=== PATIENT | female | born 1960 | race Caucasian/White ===

== ENCOUNTER → 2016-08-02 | Outpatient (CLI) | payer BC ==
[~2016-08-02] MED LIST: ESTCR PV; LATA0.009 OPB; MULT-506 PO; MULT1TAB10 PO; VITAMIN D PO
== END | disposition home or self-care (01) ==
LOC: C.PAPS 07:57
PROVIDERS: ATTEND Obstetrics & Gynecology
DX: Z01.419 Encounter for gynecological examination (general) (routine) without abnormal findings (principal)

== ENCOUNTER → 2017-04-06 | Outpatient (CLI) | payer OTHER ==
--- NOTE | 2017-04-09 07:39 | MAMMOGRAPHY REPORT ---
BILATERAL DIGITAL SCREENING MAMMOGRAM TOMOSYNTHESIS WITH CAD: 04/06/2017 CLINICAL HISTORY: Routine screening. Patient has no complaints. TECHNIQUE: Breast tomosynthesis in addition to standard 2D mammography was performed. Current study was also evaluated with a Computer Aided Detection (CAD) system. COMPARISON: Comparison is made to exams dated: 02/21/2016 mammogram, 02/15/2015 mammogram, 4 mammogram, 02/10/2013 mammogram, 02/09/2012 mammogram - [facility], and 02/04/2008. BREAST COMPOSITION: There are scattered areas of fibroglandular density in both breasts. FINDINGS: No suspicious masses, calcifications, or areas of architectural distortion are noted in ei ther breast. There has been no significant interval change compared to prior exams. IMPRESSION: ACR BI-RADS CATEGORY 1: NEGATIVE There is no mammographic evidence of malignancy. A 1 year screening mammogram is recommended. The pa tient will receive written notification of the results. Approximately 10% of breast cancers are not detected with mammography. A negative mammographic report should not delay biopsy if a clinically suggestive mass is present. Roshni Seth M.D. ah/:04/06/2017 16:22:44 [employer] Operator: Chantel SANTACRUZ(Kae)(Bryon), [facility] letter sent: Normal 1/2 BI-RADS Code: ACR BI-RADS Category 1: Negative
== END | disposition home or self-care (01) ==
LOC: C.MAMM 15:56
PROVIDERS: ATTEND Obstetrics & Gynecology
DX: Z12.31 Encounter for screening mammogram for malignant neoplasm of breast (principal)

== ENCOUNTER 2024-03-20 16:39 | Inpatient (IN) ==
--- NOTE | 2024-03-20 17:28 | XRay Report ---
Clinical history: Constipation 2 views of the abdomen were obtained Findings: There is no definite sign of small bowel obstruction. There is a large amount of stool in the ascending colon. There is prominent gaseous dilatation of the transverse and descending colon that may be due to ileus. No renal or ureteral calculi are seen. No foreign body is evident. No osseous abnormality is seen Impression: Constipation and suspected colonic ileus Electronically signed by Richard Montiel 03-20-2024 5:27 PM
[2024-03-20 17:31] LABS: Basophils # (auto) 0.03 K/uL (0.00-0.20); Basophils % (auto) 0.3 %; Eosinophils # (auto) 0.06 K/uL (0.00-0.50); Eosinophils % (auto) 0.5 %; Hematocrit (blood only) 33.9 % (37.0-47.0); Hemoglobin 11.5 g/dl (12.0-16.0); Immature Granulocytes # (auto) 0.05 K/uL (0.01-0.20); Immature Granulocytes % (auto) 0.4 %; Lymphocytes % (auto) 7.6 %; Mean Corpuscular Hemoglobin 28.3 pg (25.0-34.0); Mean Corpuscular Hgb Conc 33.9 g/dL (32.0-36.0); Mean Corpuscular Volume 83.5 fL (80.0-100.0); Mean Platelet Volume 10.5 fL (9.4-12.4); Monocytes # (auto) 0.99 K/uL (0.11-0.59); Monocytes % (auto) 8.4 %; Neutrophils # (auto) 9.74 K/uL (1.40-6.50); Neutrophils % (auto) 82.8 %; Platelet Count 259 K/uL (130-400); RDW Coefficient of Variation 12.9 % (11.5-14.5); RDW Standard Deviation 39.2 fL (36.4-46.3); Red Blood Count 4.06 M/uL (4.20-5.40); White Blood Count 11.77 K/ul (4.8-10.8)
[2024-03-20 17:41] LABS: Albumin Globulin Ratio 1.8 (0.9-2); Albumin Level 4.5 gm/dl (3.4-5.0); BUN Creatinine Ratio 15.5 (10-20); Bilirubin,Total 0.6 mg/dl (0.2-1.0); Calcium 9.8 mg/dl (8.6-10.3); Creatinine Clr Calc Pharmacy 46.3 ml/min; Globulin 2.5 gm/dl (2.5-4.0); Potassium 3.7 mmol/L (3.5-5.1)
[2024-03-20] MEDS: OPTIRAY 320 100ml IV ONE (18:28)
--- NOTE | 2024-03-20 19:01 | Emergency Department Note ---
Impression & Plan Rectal obstruction, Acute hyponatremia ED Provider Note HISTORY OF PRESENT ILLNESS: Patient is a 63-year-old female presenting with abdominal pain. Patient reports that she has colon cancer. Reports that she finished a round of chemotherapy 10 days ago. Reports that she has not had a bowel movement in at least 6 days. She states that she has not been passing any gas. Reports that last night she had some slight mucus discharge from her rectum. She reports nausea and burping but denies any vomiting. Reports that her abdomen feels very distended and very full. She denies any chest pain or shortness of breath. Reports that yesterday she tried MiraLAX. Today she tried Dulcolax and mag citrate without any rectal output. She called her oncologist and was referred to the emergency department for further evaluation. Denies any fevers. ROS: as above PHYSICAL EXAM: Constitutional: Patient appears in no acute distress. HENT: Head: Normocephalic and atraumatic. Eyes: EOMI, PERRL Mouth/Throat: Mucous membranes moist. Neck: Trachea midline. Neck supple. Cardiovascular: RRR, No murmurs, rubs or gallops. Intact distal pulses. Pulmonary/Chest: No respiratory distress. Breath sounds clear and equal bilaterally. No wheezes or rales. Abdominal: Abdomen is distended and firm. No reproducible tenderness Rectal: Chaperoned by nurse Anthony. No significant stool appreciated in the rectal vault. Rectal vault did seem to be empty other than a soft mass in the center upper part of the rectal vault. No gross blood on glove after examination. Musculoskeletal: No edema, tenderness or deformity noted. Skin: Warm and dry. No rash, erythema, pallor or cyanosis Psychiatric: Appropriate mood and affect for situation. Neurological: Alert and keenly responsive. CN II-XII grossly intact, moving all extremities equally and fully. MDM: - Vitals signs showed hypertension - History obtained via patient. History as above. - Chronic conditions affecting care: colon cancer - Differential diagnoses include, but are not limited to: small bowel obstruction; UTI; cholecystitis; ureteral stone; diverticulitis - Order placed for continuous cardiac monitoring. At this time, monitor showed rate of 80 bpm with normal sinus rhythm, per my interpretation. - External medical records reviewed. Hematology/oncology note dated 02/28/2024 was reviewed. Patient follows in their clinic for metastatic colon cancer. She had a colonoscopy on 01/02/2024 which revealed 2 synchronous colon cancers in the cecum and hepatic flexure. - Laboratory workup interpreted by myself showed slight leukocytosis (WBC 11.77); hyponatremia (Na 128); normal creatinine; normal lipase - CT abdomen/pelvis with IV contrast showed increased serosal implants/carcinomatosis involving the cecum. Now noted to have a rectal obstruction with severe colonic distention and moderate small bowel fluid. Distal left ureter is obstructed. - Did discuss case with footwear sales representative on-call, Dr. Angela, at 19:42. He discussed that in the short-term the patient could be acutely decompressed here tomorrow with his team. However, he reports that the patient may need further surgical interventions at a higher level of care. He recommends performing a rectal exam and placing an NG tube. He request that the patient be made n.p.o. at midnight and will be evaluated in the emergency department for surgical intervention. He states that if the patient's rectum is dilated on rectal examination, the patient may have some passage of fluid stool and gas. - Rectal exam was performed by myself, but there was no significant dilatation of the rectum on my exam. - NG tube placed by nursing staff. - Discussion was had with medical manager about patient's case and need for admission - Hospitalist, Dr. Redding, consulted for admission - Patient admitted to [facility] for further evaluation and management. ASSESSMENT AND PLAN: Diagnosis: Rectal obstruction; acute hyponatremia Plan: admit Past Med/Surg History Problem List (Updated 03/20/24 @ 21:25 by Kailey Carmichael MD) Acute hyponatremia (Acute) Rectal obstruction (Acute) Port-A-Cath in place (03/06/24) Insertion of Access Port Left Subclavian with Fluoroscopy (Left) - Keyon Sanders, DO Encounter for pre-operative examination Colon cancer metastasized to intra-abdominal lymph node Medical History (Updated 03/20/24 @ 21:25 by Kailey Carmichael MD) Tremor Chronic, stable per PCP records History of cardiac murmur Per patient, mention of cardiac murmur in past No murmur noted per available 2023 exams/PCP records Colon cancer metastasized to intra-abdominal lymph node History of COVID-19 11/2023- mild symptoms, resolved Surgical History (Updated 03/19/24 @ 10:41 by Keyon Sanders DO) H/O colonoscopy (01/02/24) History of tonsillectomy and adenoidectomy (~1963) History of hand surgery (~2012) History of conization of cervix Family History Mother Dementia Hypertension Essential tremor Father Diabetes Hypertension Denies family history of Ovarian cancer Prostate cancer Myocardial infarction Breast cancer Colorectal cancer Social History Smoking Status: Never smoker Second Hand Exposure: No; Do You Dip or Chew Tobacco: No; Hx Alcohol Use: Yes Alcohol type: wine Alcohol Intake Frequency: 4 or More x per/Week Alcohol Intake Frequency Comment: Approx 6 glasses/week Hx Substance Use: No Preferred Language: Polish Communication Ability: Effective Mail Examiner 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 Beliefs That Will Affect Care: None marital status: Current Living Situation: Spouse current occupational status: retired How many Children do You have: 0 Feels Safe at Home: Yes Diet: regular during the past year weight has: remained stable Assistive Devices: None Allergies Allergies Allergy/AdvReac Type Severity Reaction Status Date / Time levofloxacin Allergy Mild rash Verified 03/19/24 10:18 Penicillins Allergy Mild UNK- was Verified 03/19/24 10:18 as child Home Meds Home Medications Medication Instructions Recorded Confirmed prochlorperazine maleate 10 mg 10 mg PO Q6 PRN Nausea 03/20/24 03/20/24 tablet Previous Rx's Medication Instructions Recorded estradiol 0.01% (0.1 mg/gram) 0.5 appful vaginal 2XWK #42.5 grams 04/04/23 vaginal cream (Estrace) Results & Data (ED) Vital Signs Vital Signs - 24 hr 03/20/24 17:05 03/20/24 18:46 Temperature 36.7 C Temperature Source Temporal Artery Scan Pulse Rate 80 Pulse Rate [Finger] 80 Respiratory Rate 18 20 Respiratory Effort / Characteristics Non-Labored Respiratory Depth Normal Blood Pressure 166/100 H Blood Pressure [Left Arm] 189/106 H Blood Pressure Mean 122 Blood Pressure Mean [Left Arm] 133 Pulse Oximetry 99 99 Oxygen Delivery Method Room Air Room Air Sepsis Recent Fever Within 48 Hours No Sepsis New/Unexplained Change in Mental Status No Sepsis Action Taken by Nursing No Action Required Laboratory Data 03/20/24 17:14 03/20/24 17:14 Lab Results 03/20/24 Range/Units 17:14 WBC 11.77 H (4.8-10.8) K/ul RBC 4.06 L (4.20-5.40) M/uL Hgb 11.5 L (12.0-16.0) g/dl Hct 33.9 L (37.0-47.0) % MCV 83.5 (80.0-100.0) fL MCH 28.3 (25.0-34.0) pg MCHC 33.9 (32.0-36.0) g/dL RDW Std Deviation 39.2 (36.4-46.3) fL RDW Coeff of Madan 12.9 (11.5-14.5) % Plt Count 259 (130-400) K/uL MPV 10.5 (9.4-12.4) fL Immature Gran % (Auto) 0.4 % Neut % (Auto) 82.8 % Lymph % (Auto) 7.6 % [place] % (Auto) 8.4 % Eos % (Auto) 0.5 % Baso % (Auto) 0.3 % Neut # (Auto) 9.74 H (1.40-6.50) K/uL Lymph # (Auto) 0.90 L (1.20-3.40) K/uL [place] # (Auto) 0.99 H (0.11-0.59) K/uL Eos # (Auto) 0.06 (0.00-0.50) K/uL Baso # (Auto) 0.03 (0.00-0.20) K/uL Immature Gran # (Auto) 0.05 (0.01-0.20) K/uL Sodium 128 L (136-145) mmol/L Potassium 3.7 (3.5-5.1) mmol/L Chloride 93 L (98-107) mmol/L Carbon Dioxide 26 (21-32) mmol/L Anion Gap 9 (3-11) BUN 17 (6-23) mg/dl Creatinine 1.10 (0.6-1.2) mg/dl Est Cr Clr Drug Dosing 46.3 ml/min eGFR 55.76 BUN/Creatinine Ratio 15.5 (10-20) Glucose 118 H (70-99(Fasting)) mg/dl Calcium 9.8 (8.6-10.3) mg/dl Total Bilirubin 0.6 (0.2-1.0) mg/dl AST 32 (13-39) U/L ALT 17 (7-52) U/L Alkaline Phosphatase 62 (34-104) U/L Total Protein 7.0 (6.0-8.3) gm/dl Albumin 4.5 (3.4-5.0) gm/dl Globulin 2.5 (2.5-4.0) gm/dl Albumin/Globulin Ratio 1.8 (0.9-2) Lipase 36 (11-82) U/L Administered Medications Discontinued Medications Sodium Chloride (Nss) 1,000 mls @ 999 mls/hr IV .Q1H1M ONE Stop: 03/20/24 21:04 Last Admin: 03/20/24 20:22 Dose: 999 mls/hr Documented By: CDM Ioversol (Optiray 320 100ml) 95 ml IV ONCE ONE Stop: 03/20/24 18:29 Last Admin: 03/20/24 18:28 Dose: 95 ml Documented By: EAJulio C Imaging Data Radiologist's Impression: KUB X-Ray 03/20/24 17:10 Clinical history: Constipation 2 views of the abdomen were obtained Findings: There is no definite sign of small bowel obstruction. There is a large amount of stool in the ascending colon. There is prominent gaseous dilatation of the transverse and descending colon that may be due to ileus. No renal or ureteral calculi are seen. No foreign body is evident. No osseous abnormality is seen Impression: Constipation and suspected colonic ileus Electronically signed by Richard Montiel 03-20-2024 5:27 PM Abdomen/Pelvis CT 03/20/24 17:32 EXAM: CT Abdomen and Pelvis With Intravenous Contrast INDICATION: Abdominal pain and vomiting. History of colon cancer. TECHNIQUE: Axial computed tomography images of the abdomen and pelvis with intravenous contrast. Sagittal and coronal reformatted images were created and reviewed. This CT exam was performed using one or more of the following dose reduction techniques: automated exposure control, adjustment of the mA and/or kV according to patient size, and/or use of iterative reconstruction technique. CONTRAST: 95ml of Optiray 320 was administered intravenously. COMPARISON: 01/10/2024 FINDINGS: Limitations: None. Lung bases: There is minimal atelectasis in the left lung base. Pleural space: No visualized pleural effusion or pneumothorax. Heart: No abnormality noted. Mediastinum: No abnormality noted. ABDOMEN: Liver: No abnormality noted. Gallbladder and bile ducts: No calcified stones or surrounding fluid. Pancreas: Homogeneous enhancement. No mass, inflammation or ductal dilation. Spleen: No significant abnormality noted. Adrenals: No significant abnormality noted. Kidneys and ureters: The left kidney is obstructed with delayed nephrogram. The left ureter is mildly dilated followed to the level of the left common iliac bifurcation where it presumably is obstructed. Stomach and bowel: There is marked colonic distention with the cecum measuring roughly 13.6 cm and contains a moderate amount of formed stool. The stool becomes largely liquid with slightly decreasing colonic dilatation to the distal rectum with the rectal vault collapsed. There is a moderate amount of fluid layering in small bowel loops. No pneumatosis. There is slight increased nodular omental caking in the left upper lobe. Increased irregular mucosal thickening of the cecum. PELVIS: Appendix: No findings to suggest acute appendicitis. Bladder: No filling defects to suggest mass or large stone. No inflammation. Reproductive: Stable irregular exophytic mass from the right uterus measuring 4.5 x 3.7 x 3.7 cm. ABDOMEN and PELVIS: Intraperitoneal space: Small amounts of ascites noted in the abdomen and pelvis. No abscess. No free air. Bones/joints: Mild degenerative changes noted in the spine. No lytic or blastic lesions noted. Incidental sacral cysts present. Soft tissues: No significant abnormality noted. Vasculature: No abdominal aortic aneurysm. Lymph nodes: No pathologically enlarged lymph nodes. Other findings: Stable pelvic cystic mass which is now deviated to the right and midline measuring 13.2 x 7.7 x 7.8 cm. Tiny granuloma noted along the right fissure. IMPRESSION: 1. Increased serosal implants/carcinomatosis typically involving the cecum. There is now rectal obstruction with severe colonic distention and moderate small bowel fluid. 2. The left distal ureter is obstructed somewhere about the common iliac bifurcation with delayed left nephrogram and moderate hydronephrosis. 3. Mild abdominal and pelvic ascites. 4. Stable heterogeneous exophytic mass from the right uterus. ACT 112: Negative or not required by law. Electronically signed by Beena Melo 03-20-2024 6:58 PM Discharge Plan Visit Data Chief Complaint: Constipation Stated Complaint: COLON CX PT, CONSTIPATION, BOWEL OBS ED Provider: Kailey Carmichael Discharge Problem: Rectal obstruction, Acute hyponatremia Forms Stand Alone Forms: [facility] Prescriptions Prescriptions: No Action estradiol [Estrace] 0.01 % (0.1 mg/gram) cream 0.5 appful PV 2XWK Qty: 42.5 11RF prochlorperazine maleate 10 mg tablet 10 mg PO Q6 PRN (Reason: Nausea) Referrals Referrals: Je Diez MD [Primary Care Provider] -
[2024-03-20] MEDS: SODIUM CHLORIDE 0.9% 1,000 ML IV ONE (20:22)
--- NOTE | 2024-03-20 20:42 | History & Physical Report ---
Date of Service March 20, 2024 Assessment & Plan (1) Bowel obstruction: Plan: hx of colon cancer s/p 1st tx of chemotherapy 03/10 no bowel movement since 03/11 KUB shows constipation and colonic ileus AP CT showing total obstruction with severe colonic distention and moderate small bowel fluid, mild abdominal and pelvic ascites GI consulted, Dr. Angela to perform bowel decompression 03/21 - may need transferred to tertiary care center once surgical intervention - preop EKG and type/screen ordered NPO NG tube placed - KUB confirms placement Protonix IV BID hydration with IVF overnight (2) Ureter obstruction: Plan: 2/[address] AP shows left distal ureter obstructed somewhere about the common iliac bifurcation with delayed left nephrogram and moderate hydronephrosis monitor urine output UA ordered urology consulted (3) Colon cancer: Plan: with mets to ovary 1st chemotherapy tx 03/10; follows with Dr. Yi ([facility]) and Dr. Becerril ([facility]) complications above is to have chemotherapy Friday 03/24 Oncology consulted - Dr. Becerril - if unable to see patient, can consult Dr. Yi or [place] (4) Acute hyponatremia: Plan: Patient with NA of 128 cause unknown at this time although possible chemotherapy side effect? Serum osmol, Urine NA, Urine Osmol ordered - confirming hypotonic hyponatremia 1 L NSS in ED and gentle resuscitation overnight given NPO trend BMP (5) Leukocytosis: Plan: WBC 11.77 possibly elevated due to cancer tx does not appear infectious at this time - VSS, a febrile UA ordered trend CBC (6) Anemia: Plan: chronic, colon CA Hgb baseline, 115 trend CBC Plan Patient is a 63-year-old female with a past medical history of colon cancer, underwent first round of chemotherapy Friday 03/10. She is being admitted for a bowel obstruction to undergo surgical decompression with GI 03/21; NG tube placed and n.p.o. patient may need transfer to tertiary care center after surgical evaluation during intervention. She is also found to have left distal ureter obstruction, urology consulted. She follows with Dr. Y[facility] at [facility] and Dr. Becerril with [facility]; oncology consulted. VTE ppx: SCDs - defer chemical ppx given surgical intervention, can add post- operatively Diet: NPO Dispo: med/tele Admission and Anticipated Discharge Date Admission Date: 03/20/24 History of Present Illness Chief Complaint: constipation Primary Care Provider: Je Diez MD Patient is a 63-year-old female with a past medical history of colon cancer, underwent first round of chemotherapy Friday 03/10. She is being admitted for a bowel obstruction to undergo surgical decompression with GI 03/21; NG tube placed and n.p.o. patient may need transfer to tertiary care center after surgical evaluation during intervention. She is also found to have left distal ureter obstruction, urology consulted. She follows with Dr. Yi at the [facility] and Dr. Becerril with [facility]; Dr. Becerril consulted. Patient seen at bedside with her present. She stated her last bowel movement was approximately 8 days ago last Sunday. She had her first round of chemotherapy on Friday 03/10. She stated she has had a decreased appetite since then, however has still been eating. She has tried taking MiraLAX on Sunday, Dulcolax yesterday, and mag citrate this afternoon which she threw up. She also had 1 episode of vomiting last night. She denies nausea currently. She denies dyspnea but endorses heavy breathing, as she chronically has when she is feeling sick. She has abdominal distention, and also states her abdomen is uncomfortable but denies pain. She stated she has had decreased urination today but has not been eating or drinking much, denies difficulty urinating or dysuria. She denies fevers, chills, chest pain. Patient does not use nicotine products or drink alcohol. She has no significant past medical history other than the colon cancer, no HTN, DM, previous VTE. She does not take any regular home medications other than a daily multivitamin. She does not use oxygen at baseline. She wishes to be full code at this time. Handoff from ED provider stated that she spoke with GI, Dr. Angela, who is planning for an acute decompression tomorrow morning, based off evaluation during surgical intervention may need transfer to tertiary care center. Dr. Angela recommended a rectal exam in which ER provider stated no rectal dilation, vault empty, palpable mass. NG tube placed in ED. Allergies Allergy/AdvReac Type Severity Reaction Status Date / Time levofloxacin Allergy Mild rash Verified 03/19/24 10:18 Penicillins Allergy Mild UNK- was Verified 03/19/24 10:18 as child Home Medications Medication Instructions Recorded Confirmed Type estradiol 0.01% (0.1 mg/gram) 0.5 appful vaginal 2XWK #42.5 grams 04/04/23 03/20/24 Rx vaginal cream (Estrace) prochlorperazine maleate 10 mg 10 mg PO Q6 PRN Nausea 03/20/24 03/20/24 History tablet Past Med/Surg History Problem List (Updated 03/21/24 @ 16:21 by Latanya Moore MD) Perforation bowel Colon cancer Anemia Leukocytosis Ureter obstruction Bowel obstruction Acute hyponatremia (Acute) Rectal obstruction (Acute) Port-A-Cath in place (03/06/24) Insertion of Access Port Left Subclavian with Fluoroscopy (Left) - Keyon Sanders DO Encounter for pre-operative examination Colon cancer metastasized to intra-abdominal lymph node Medical History Tremor Chronic, stable per PCP records History of cardiac murmur Per patient, mention of cardiac murmur in past No murmur noted per available 2023 exams/PCP records Colon cancer metastasized to intra-abdominal lymph node History of COVID-19 11/2023- mild symptoms, resolved Surgical History H/O colonoscopy (01/02/24) History of tonsillectomy and adenoidectomy (~1963) History of hand surgery (~2012) History of conization of cervix Family History Mother Dementia Hypertension Essential tremor Father Diabetes Hypertension Denies family history of Ovarian cancer Prostate cancer Myocardial infarction Breast cancer Colorectal cancer Social History Smoking Status: Never smoker Second Hand Exposure: No; Do You Dip or Chew Tobacco: No; Hx Alcohol Use: Yes Alcohol type: wine Alcohol Intake Frequency: 4 or More x per/Week Alcohol Intake Frequency Comment: Approx 6 glasses/week Hx Substance Use: No Preferred Language: Kazakh Communication Ability: Effective 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 Non-toxic appearing. HEENT- EOMI, mucous membranes moist. Hearing grossly intact. Heart-normal S1 and S2. No murmurs, rubs or gallops. Lungs-clear bilaterally, no respiratory distress, no accessory muscle use. Abdomen- Non-tender. Moderate distention, NG tube placed. Extremities- no clubbing, cyanosis, or edema. Rheumatologic-normal range of motion. Psychiatric-normal affect. Results & Data Results & Data Vital Signs (Past 12 Hours) Vital Signs Temp Pulse Pulse Resp BP BP Pulse Ox 03/20/24 18:46 80 20 189/106 H 99 03/20/24 17:05 36.7 C 80 18 166/100 H 99 O2 Del Method 03/20/24 18:46 Room Air 03/20/24 17:05 Room Air Laboratory Results Reviewed CBC, CMP Diagnostic Findings reviewed KUB and AP CT Medications Administered ED: 1L NSS ECG Additional Comments: ordered Code Status & VTE Plan Code Status full VTE Prophylaxis Plan VTE Prophylaxis will be ordered: Yes Supervising Physician Co-Signing Physician Notes Attending addendum: I have physically seen this patient, have supervised the LATASHA's activities, and agree with the H&P unless as otherwise noted. Assessment and Plan: The patient is a 63-year-old female with a past medical history including colon cancer status post right first round of chemotherapy 03/10. She was found to have a bowel obstruction, and scheduled to go undergo surgical decompression on 03/21 with gastroenterology. She is also found to have a distal left ureter obstruction, for which urology will be consulted. She will also be seen by Dr. Becerril from [facility] her oncologist. Bowel obstruction- To undergo decompression by gastroenterology on 03/21, and may need transfer at [facility] afterwards related to potential surgical intervention N.p.o. Protonix 40 mg IV twice daily IV fluids as noted Distal left ureteral obstruction- CT abdomen pelvis shows left distal ureter obstructed somewhere about the common iliac bifurcation with delayed left nephrogram and moderate hydronephrosis Follow urine culture and sensitivity Consult urology Colon cancer- Follows with Dr. Hernandez locally, and Dr. Becerril from [facility] Acute hyponatremia- Sodium 128 on admission Serum osmolality, urine osmolality pending Likely secondary to decreased oral intake Laboratories pending PG Care Time/CCT Total # of Minutes Spent Total Time Spent with Patient: Total time spent is greater than 50% in coordination of care (as documented) at patient's floor/unit and/or counseling patient: Coding Level of Care Code 59007 INT INP/OBS CARE MIN Diagnoses Bowel obstruction K56.609 Ureter obstruction N13.5 Colon cancer C18.9 Acute hyponatremia E87.1 Leukocytosis D72.829 Anemia D64.9
--- NOTE | 2024-03-20 21:25 | XRay Report ---
Exam(s): XR KUB EXAM: XR Abdomen, CLINICAL HISTORY: Reason for exam: NG Confirmation. TECHNIQUE: Frontal view of the abdomen/pelvis. COMPARISON: No relevant prior studies available. FINDINGS: Intraperitoneal space: No free air. Gastrointestinal tract: High-grade small bowel obstruction. Bones/joints: Mild degenerative changes of the hips bilaterally. No acute fracture. Tubes, lines and devices: Esophageal catheter with its tip overlying the gastric fundus. IMPRESSION: High grade small bowel obstruction with appropriate positioning of esophageal catheter Electronically signed by: Chavez Powell MD 03/20/24 21:24 PM
[2024-03-20] MEDS: SODIUM CHLORIDE 0.9% 1,000 ML IV SCH (22:30)
[2024-03-20] MEDS: PANTOprazole 40 MG/10 ML SYR IV ONE (22:52)
[2024-03-20 22:56] LABS: Appearance Urine Clear (Clear); Bacteria Urine Automated None Seen (None Seen); Bilirubin Urine Negative (Negative); Blood Urine Negative (Negative); Cast Urine Automated 0-2 /lpf (0-2); Color Urine Yellow; Epithelial Cell Urine Auto 0-2 /hpf (0-2); Glucose Urine UA Negative (Negative); Ketones Urine 2+ (Negative); Leukocyte Esterase Urine Negative (Negative); Nitrite Urine Negative (Negative); Protein Urine 1+ (Negative); RBC Urine Automated 0-2 /hpf (0-2); Specific Gravity Urine > 1.045 (1.000-1.030); Urobilinogen Urine Negative (Negative); WBC Urine Automated 0-5 /hpf (0-5)
[2024-03-20] MEDS: LIDOCAINE 2% JELLY 5 ML TUBE EXT ONE (22:57)
[2024-03-20] MEDS ORDERED: ONDANSETRON INJ 2 MG/ML 2 ML VIAL IV PRN (23:10)
[2024-03-21] MEDS: ACETAMINOPHEN 1,000 MG/100 ML VIAL IV PRN (03:01)
[2024-03-21 07:42] LABS: Hematocrit (blood only) 35.2 % (37.0-47.0); Hemoglobin 12.3 g/dl (12.0-16.0); Mean Corpuscular Hemoglobin 28.7 pg (25.0-34.0); Mean Corpuscular Hgb Conc 34.9 g/dL (32.0-36.0); Mean Corpuscular Volume 82.1 fL (80.0-100.0); Mean Platelet Volume 10.8 fL (9.4-12.4); Platelet Count 224 K/uL (130-400); RDW Coefficient of Variation 13.2 % (11.5-14.5); RDW Standard Deviation 38.5 fL (36.4-46.3); Red Blood Count 4.29 M/uL (4.20-5.40); White Blood Count 0.95 K/ul (4.8-10.8)
[2024-03-21 07:59] LABS: Calcium 8.8 mg/dl (8.6-10.3); Creatinine Clr Calc Pharmacy 52.5 ml/min; Magnesium 2.7 mg/dl (1.7-2.4); Potassium 3.5 mmol/L (3.5-5.1)
[2024-03-21 08:05] LABS: Acanthocytes 1+; Echinocytes 1+; Polychromasia 1+
[2024-03-21 08:09] LABS: Basophils # (auto) 0.01 K/uL (0.00-0.20); Basophils % (auto) 1.1 %; Immature Granulocytes # (auto) 0.01 K/uL (0.01-0.20); Immature Granulocytes % (auto) 1.1 %; Lymphocytes # (auto) 0.14 K/uL (1.20-3.40); Lymphocytes % (auto) 14.7 %; Monocytes # (auto) 0.15 K/uL (0.11-0.59); Monocytes % (auto) 15.8 %; Neutrophils # (auto) 0.64 K/uL (1.40-6.50); Neutrophils % (auto) 67.3 %
[2024-03-21] MEDS: PANTOprazole 40 MG/10 ML SYR IV SCH (08:44)
--- NOTE | 2024-03-21 08:54 | Gastrointestinal Consultation ---
Date of Consultation March 21, 2024 Assessment & Plan (1) Bowel obstruction: (2) Colon cancer: Plan Discussed case with Dr. Angela, will place patient on schedule for an emergent colonoscopy with decompression this morning. patient agreeable. further recommendations to follow. Supervising Physician Co-Signing Physician Notes See my note from earlier today. Metastatic colon cancer with peritoneal mets with obstruction. Colonic decompression did not result in significant decrease in precolonoscopy abdominal distention. Concern for perforation. X-rays confirmed. Patient for transfer to [place]. Reviewed with patient and at the bedside. History of Present Illness Reason for Consultation: rectal obstruction. Requesting Physician: Kailey Scott MD Attending Physician: Chavez Mcneil DO History of Present Illness Patient is a 63 year old female who presented to the ED on 03/20 with complaints of abdominal pain. Patient reports that she has colon cancer and is following with Dr. Becerril at [facility]. She tells me that she finished a round of chemotherapy 10 days ago and she has not had a bowel movement in at least 6 days. She states that she has not been passing any gas. She has tried miralax, dulcolax and mag citrate without benefit. Only had some slight mucus discharge from her rectum. She reports nausea and burping but denies any vomiting. Reports that her abdomen feels very distended and full. KUB shown constipation and suspected ileus. CT shown rectal obstruction with severe colonic distention. She had NG placed with only minimal benefit in regards to her pain. Allergies Allergy/AdvReac Type Severity Reaction Status Date / Time levofloxacin Allergy Mild rash Verified 03/19/24 10:18 Penicillins Allergy Mild UNK- was Verified 03/19/24 10:18 as child Home Medications Medication Instructions Recorded Confirmed Type estradiol 0.01% (0.1 mg/gram) 0.5 appful vaginal 2XWK #42.5 grams 04/04/23 03/20/24 Rx vaginal cream (Estrace) prochlorperazine maleate 10 mg 10 mg PO Q6 PRN Nausea 03/20/24 03/20/24 History tablet Patient History Medical History Tremor Chronic, stable per PCP records History of cardiac murmur Per patient, mention of cardiac murmur in past No murmur noted per available 2023 exams/PCP records Colon cancer metastasized to intra-abdominal lymph node History of COVID-19 11/2023- mild symptoms, resolved Surgical History H/O colonoscopy (01/02/24) History of tonsillectomy and adenoidectomy (~1963) History of hand surgery (~2012) History of conization of cervix Family History Mother Dementia Hypertension Essential tremor Father Diabetes Hypertension Denies family history of Ovarian cancer Prostate cancer Myocardial infarction Breast cancer Colorectal cancer Social History Smoking Status: Never smoker Second Hand Exposure: No; Do You Dip or Chew Tobacco: No; Tobacco Cessation Education Requested by Patient: No Hx Alcohol Use: Yes Alcohol type: wine Alcohol Intake Frequency: 4 or More x per/Week Alcohol Intake Frequency Comment: Approx 6 glasses/week Hx Substance Use: No Preferred Language: Spanish Communication Ability: Effective 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 Beliefs That Will Affect Care: None marital status: Current Living Situation: Spouse current occupational status: retired How many Children do You have: 0 Other Information That Helps Us Care for You: No Feels Safe at Home: Yes Safety Concerns: Feels Safe At This Time Diet: regular during the past year weight has: remained stable Assistive Devices: None Review of Systems Review of Systems: All systems reviewed & are unremarkable except as noted in HPI & below Physical Exam Constitutional: WD/WN, vitals as above Respiratory: normal respiratory effort, lungs clear to auscultation Cardiovascular: tachycardic Gastrointestinal (Abdomen): distended and tympanic. diffusely tender. hypoactive bowel sounds. Psychiatric: Orientation: alert and oriented x 3 Results & Data Vital Signs (Past 12 Hours) Vital Signs Temp Pulse Pulse Resp BP Pulse Ox O2 Del Method 03/21/24 07:57 98.4 F 98 H 16 160/96 H 94 Room Air 03/21/24 07:43 90 03/21/24 02:51 97.5 F L 93 H 16 153/74 H 93 Room Air 03/20/24 23:36 83 03/20/24 23:24 83 18 98 Room Air 03/20/24 23:23 Room Air 03/20/24 23:23 98.1 F 82 18 164/99 H 97 Room Air 03/20/24 22:00 88 18 96 Coding Level of Care Code 09327 INT INP/OBS CARE MIN Diagnoses Bowel obstruction K56.609 Colon cancer C18.9
[2024-03-21] MEDS ORDERED: MINERAL OIL 30 ML UDC ONE (09:00)
[2024-03-21 09:01] LABS: Hematocrit (blood only) 36.1 % (37.0-47.0); Hemoglobin 12.4 g/dl (12.0-16.0); Mean Corpuscular Hemoglobin 28.4 pg (25.0-34.0); Mean Corpuscular Hgb Conc 34.3 g/dL (32.0-36.0); Mean Corpuscular Volume 82.8 fL (80.0-100.0); Mean Platelet Volume 10.4 fL (9.4-12.4); Nucleated RBC # (auto) 0.02 K/uL (0.00-0.12); Nucleated RBC % (auto) 1.4 %; Platelet Count 231 K/uL (130-400); RDW Coefficient of Variation 13.1 % (11.5-14.5); RDW Standard Deviation 38.9 fL (36.4-46.3); Red Blood Count 4.36 M/uL (4.20-5.40); White Blood Count 1.39 K/ul (4.8-10.8)
--- NOTE | 2024-03-21 09:07 | Hospitalist Progress Note ---
Date of Service March 21, 2024 Assessment & Plan Admission and Anticipated Discharge Date Admission Date: March 20, 2024 Results & Data Results & Data Vital Signs (Past 12 Hours) Vital Signs Temp Pulse Pulse Resp BP Pulse Ox O2 Del Method 03/21/24 07:57 36.9 C 98 H 16 160/96 H 94 Room Air 03/21/24 07:43 90 03/21/24 02:51 36.4 C L 93 H 16 153/74 H 93 Room Air 03/20/24 23:36 83 03/20/24 23:24 83 18 98 Room Air 03/20/24 23:23 Room Air 03/20/24 23:23 36.7 C 82 18 164/99 H 97 Room Air 03/20/24 22:00 88 18 96
--- NOTE | 2024-03-21 09:25 | Communication Note ---
Date of Service: March 21, 2024 Colonic obstruction. Likely related to peritoneal metastases. Patient feels better with NG placement but still have significant lower abdominal discomfort. Bowel sounds decreased. Some guarding without jasbir rebound. Needs colonoscopy for decompression. Risks of the procedure including perforation addressed. Informed consent obtained
--- NOTE | 2024-03-21 09:27 | Anesthesiology Consultation ---
Date of Service March 21, 2024 Assessment & Plan Chart Review Chart Review: Acceptable Risk for Surgery and Patient NOT seen in Pre Admission Testing Consults Requested none ASA ASA4 Proposed Anesthesia Anesthesia Type: MAC History Surgery Operation Date: 03/21/24 17:15 Proposed Procedures p Colonoscopy with Decompression Dr. Julio César Angela MD Height/Weight Height: 5 ft 6 in Weight: 68.7 kg Allergies Allergy/AdvReac Type Severity Reaction Status Date / Time levofloxacin Allergy Mild rash Verified 03/19/24 10:18 Penicillins Allergy Mild UNK- was Verified 03/19/24 10:18 as child Medications Home Medications Medication Instructions Recorded Confirmed Last Taken estradiol 0.01% (0.1 mg/gram) 0.5 appful vaginal 2XWK #42.5 grams 04/04/23 03/20/24 03/03/24 23:00 vaginal cream (Estrace) prochlorperazine maleate 10 mg 10 mg PO Q6 PRN Nausea 03/20/24 03/20/24 Unknown tablet Active Medications Generic Name Dose Route Start Last Admin Trade Name Freq PRN Reason Stop Dose Admin Sodium Chloride 1,000 mls @ 100 mls/hr 03/20/24 21:15 03/21/24 08:44 Nss IV 03/21/24 21:14 100 mls/hr .Q10H LIZZ Administration Pantoprazole Sodium 40 mg in 10 mls @ 5 mls/min 03/21/24 09:00 03/21/24 08:44 Protonix IV 04/20/24 08:59 5 mls/min BID LIZZ Administration Acetaminophen 1,000 mg in 100 mls @ 400 mls/hr 03/20/24 23:10 03/21/24 03:16 Ofirmev IV 03/23/24 23:09 Infused Q8H PRN Infusion Pain Past Medical History Medical History Tremor Chronic, stable per PCP records History of cardiac murmur Per patient, mention of cardiac murmur in past No murmur noted per available 2023 exams/PCP records Colon cancer metastasized to intra-abdominal lymph node History of COVID-19 11/2023- mild symptoms, resolved Exercise / Class Metabolic Activity III < 4 Walking/Shop/Light housework Past Family History Family History Mother Dementia Hypertension Essential tremor Father Diabetes Hypertension Denies family history of Ovarian cancer Prostate cancer Myocardial infarction Breast cancer Colorectal cancer Past Surgical History Surgical History H/O colonoscopy (01/02/24) History of tonsillectomy and adenoidectomy (~1963) History of hand surgery (~2012) History of conization of cervix Past Anesthesia History No Hx of Anesthesia Complications and No Family Hx of Anesthesia Complications History of PONV No Hx of PONV and No Hx of Motion Sickness Social History Smoking Status: Never smoker Do You Dip or Chew Tobacco: No Hx Alcohol Use: Yes Alcohol type: wine alcohol intake frequency: a few times a week Hx Substance Use: No substance use type: does not use Physical Exam Vital Signs Last Vital Signs Temp 36.9 C 03/21/24 07:57 Pulse 98 H 03/21/24 07:57 Resp 16 03/21/24 07:57 BP 160/96 H 03/21/24 07:57 Pulse Ox 94 03/21/24 07:57 O2 Del Method Room Air 03/21/24 07:57 Testing Laboratory Results 03/21/24 08:34 03/21/24 06:22 Urine Color Yellow 03/20/24 22:27 Urine Appearance Clear (Clear) 03/20/24 22:27 Urine pH 6.0 (4.5-7.5) 03/20/24 22:27 Ur Specific [place] > 1.045 (1.000-1.030) H 03/20/24 22:27 Urine Protein 1+ (Negative) H 03/20/24 22:27 Urine Glucose (UA) Negative (Negative) 03/20/24 22:27 Urine Ketones 2+ (Negative) H 03/20/24 22:27 Urine Nitrite Negative (Negative) 03/20/24 22:27 Ur Leukocyte Esterase Negative (Negative) 03/20/24 22:27 Urine WBC (Auto) 0-5 /hpf (0-5) 03/20/24 22:27 Urine RBC (Auto) 0-2 /hpf (0-2) 03/20/24 22:27 U Hyaline Cast (Auto) 0-2 /lpf (0-2) 03/20/24 22:27 U Epithel Cells (Auto) 0-2 /hpf (0-2) 03/20/24 22:27 Urine Bacteria (Auto) None Seen (None Seen) 03/20/24 22:27 Blood Type A Positive 03/21/24 06:22 Antibody Screen NEGATIVE 03/21/24 06:22 03/20/24 23:12 POC Glucose 111 H Electrocardiogram Date: 03/21/24 Findings: + NSR @ (@ 94;LAD)
[2024-03-21] MEDS ORDERED: ePHEDrine sulfate 50 MG/ML AMP IV PRN (09:30)
[2024-03-21] MEDS ORDERED: ATROPINE SULFATE 0.1 MG/ML 10ML SYR IV PRN (09:30)
[2024-03-21 09:43] LABS: Basophils # (auto) 0.03 K/uL (0.00-0.20); Basophils % (auto) 2.2 %; Eosinophils # (auto) 0.01 K/uL (0.00-0.50); Eosinophils % (auto) 0.7 %; Immature Granulocytes # (auto) 0.09 K/uL (0.01-0.20); Immature Granulocytes % (auto) 6.5 %; Lymphocytes # (auto) 0.17 K/uL (1.20-3.40); Lymphocytes % (auto) 12.2 %; Monocytes # (auto) 0.18 K/uL (0.11-0.59); Monocytes % (auto) 12.9 %; Neutrophils # (auto) 0.91 K/uL (1.40-6.50); Neutrophils % (auto) 65.5 %
[2024-03-21 09:44] LABS: Echinocytes 2+
[2024-03-21 09:45] LABS: Toxic Vacuolation 1+
[2024-03-21] MEDS ORDERED: LIDOCAINE 2% 2 ML VIAL/AMP(20MG/ML) INFIL ONE (09:55)
[2024-03-21] MEDS ORDERED: PROPOFOL IV EMULSION 10 MG/ML 20 ML VIAL IV ONE (09:55)
[2024-03-21] MEDS ORDERED: fentaNYL citrate PF 100 MCG/2 ML VIAL ONE (09:59)
[2024-03-21] MEDS ORDERED: ONDANSETRON INJ 2 MG/ML 2 ML VIAL ONE (10:35)
--- NOTE | 2024-03-21 10:36 | Communication Note ---
Date of Service: March 21, 2024 Date of Service: March 21, 2024 Unable to negotiate the stricture just above the rectosigmoid with a regular pediatric colonoscope. EGD used. Were able to advance to the transverse colon. The colon lumen did not appear as dilated as I would expect. There is significant stool throughout. Minimal air inserted. Predominately advance with fluid and lavage. Air evacuated on withdrawal. A Cook broad Abram type rectal tube was inserted over guidewire into the sigmoid colon area above the stricture. Position confirmed endoscopically scope removed and the tube secured to the right buttock. Her abdomen does not feel significantly softer post procedure with continued fullness and firmness in the lower abdomen similar to the preop exam. This is concerning. May represent significant peritoneal metastases though need to exclude a perforation. Leave rectal tube in place. Abdominal series. Continue NG suction for now A&P (1) Rectal obstruction: Maintain NPO. Abdominal series. Rectal tube. Acute
[2024-03-21 10:59] VITALS: RESP 18
--- NOTE | 2024-03-21 11:20 | Anesthesiology Progress Note ---
Date of Service March 21, 2024 Anesthesia Post Procedure Vital Signs Vital Signs: Temp Pulse Pulse Resp BP BP Pulse Ox 03/21/24 11:09 95 H 18 141/82 H 94 03/21/24 10:54 91 H 18 165/96 H 97 03/21/24 10:39 87 12 111/75 98 03/21/24 09:27 36.1 C L 90 20 154/101 H 95 03/21/24 07:57 36.9 C 98 H 16 160/96 H 94 03/21/24 07:43 90 03/21/24 02:51 36.4 C L 93 H 16 153/74 H 93 03/20/24 23:36 83 03/20/24 23:24 83 18 98 03/20/24 23:23 03/20/24 23:23 36.7 C 82 18 164/99 H 97 03/20/24 22:00 88 18 96 03/20/24 18:46 80 20 189/106 H 99 03/20/24 17:05 36.7 C 80 18 166/100 H 99 O2 Del Method O2 Flow Rate 03/21/24 11:09 Room Air 03/21/24 10:54 Oxymask 2 03/21/24 10:39 Oxymask 6 03/21/24 09:27 Room Air 03/21/24 07:57 Room Air 03/21/24 07:43 03/21/24 02:51 Room Air 03/20/24 23:36 03/20/24 23:24 Room Air 03/20/24 23:23 Room Air 03/20/24 23:23 Room Air 03/20/24 22:00 03/20/24 18:46 Room Air 03/20/24 17:05 Room Air Pain Intensity Bilateral Abdomen: Pain Intensity: 1 Transfer of Care Handoff Completed per policy Notes Mental Status: alert / awake / arousable Patient Amnestic to Procedure: Yes Nausea / Vomiting: adequately controlled Pain: adequately controlled Airway Patency, RR, SpO2: stable & adequate BP & HR: stable & adequate Hydration State: stable & adequate Anesthetic Complications: no major complications apparent
--- NOTE | 2024-03-21 11:29 | Surgery Consultation ---
Date of Consultation March 21, 2024 Assessment & Plan (1) Colon cancer: Her CT images and results were personally viewed and interpreted by myself Her colonoscopy results were discussed with the patient alongside GI Her obstruction is likely due to her worsening peritoneal disease based on the location in the rectum She has synchronous colon cancer, on active chemotherapy and is neutropenic I think a transfer to a tertiary care center would be appropriate for the patient due to the complexity of her disease I discussed these recommendations with IM team No plans for any surgical intervention Surgery will sign off at this time, please call with any questions or concerns (2) Bowel obstruction: History of Present Illness Reason for Consultation: Colon Cancer, LBO Attending Physician: Chavez Mcneil DO History of Present Illness This is a 63-year-old female who presented to the emergency room yesterday with constipation and abdominal pain. She has a history of synchronous colon cancer and has been undergoing chemotherapy treatments with her last being on March 10. She just had a decompressive colonoscopy and rectal tube placed above the area of rectal stricture. She is resting comfortably after the procedure. States she is passing minimal flatus. Allergies Allergy/AdvReac Type Severity Reaction Status Date / Time levofloxacin Allergy Mild rash Verified 03/19/24 10:18 Penicillins Allergy Mild UNK- was Verified 03/19/24 10:18 as child Home Medications Medication Instructions Recorded Confirmed Type estradiol 0.01% (0.1 mg/gram) 0.5 appful vaginal 2XWK #42.5 grams 04/04/23 03/20/24 Rx vaginal cream (Estrace) prochlorperazine maleate 10 mg 10 mg PO Q6 PRN Nausea 03/20/24 03/20/24 History tablet Patient History Medical History Tremor Chronic, stable per PCP records History of cardiac murmur Per patient, mention of cardiac murmur in past No murmur noted per available 2023 exams/PCP records Colon cancer metastasized to intra-abdominal lymph node History of COVID-19 11/2023- mild symptoms, resolved Surgical History H/O colonoscopy (01/02/24) History of tonsillectomy and adenoidectomy (~1963) History of hand surgery (~2012) History of conization of cervix Family History Mother Dementia Hypertension Essential tremor Father Diabetes Hypertension Denies family history of Ovarian cancer Prostate cancer Myocardial infarction Breast cancer Colorectal cancer Social History Smoking Status: Never smoker Second Hand Exposure: No; Do You Dip or Chew Tobacco: No; Tobacco Cessation Education Requested by Patient: No Hx Alcohol Use: Yes Alcohol type: wine Alcohol Intake Frequency: 4 or More x per/Week Alcohol Intake Frequency Comment: Approx 6 glasses/week Hx Substance Use: No Preferred Language: Macedonian Communication Ability: Effective 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 Beliefs That Will Affect Care: None marital status: Current Living Situation: Spouse current occupational status: retired How many Children do You have: 0 Other Information That Helps Us Care for You: No Feels Safe at Home: Yes Safety Concerns: Feels Safe At This Time Diet: regular during the past year weight has: remained stable Assistive Devices: None Review of Systems Constitutional: no fever and no chills Eyes: no blind spots and no worsening vision Ear, Nose, Mouth, Throat: no ear pain and no dizziness Respiratory: no cough and no dyspnea Cardiovascular: no chest pain and no dyspnea on exertion Gastrointestinal: + abdominal pain, + nausea, + vomiting a nd + constipation Genitourinary: no dysuria and no urinary urgency Musculoskeletal: no back pain and no neck pain Integumentary: no acne, no erythema and no dry skin Neurologic: no gait abnormality and no headache(s) Psychiatric: no behavioral changes and no depression Hematologic / Lymphatic: no easy bleeding and no easy bruising Physical Exam Constitutional: WD/WN, vitals as above Eyes: PERRL, conjunctivae normal, anicteric sclerae ENMT: NG tube in place Neck: trachea midline, no thyromegaly Respiratory: normal respiratory effort, lungs clear to auscultation Cardiovascular: RRR, no murmur, no edema Gastrointestinal (Abdomen): Inspection/Auscultation: + abdomen distended; + abdomen abnormal to inspection Percussion/Palpation: + abdomen tender (mild generalized) and abdomen soft; no guarding and no hernia Musculoskeletal: no cyanosis or clubbing, extremities motor strength 5/5 Skin: no rashes, warm and dry Neurologic: PERRL, EOMI, accommodation nl, no face palsy, no dysarthria Psychiatric: A+Ox3, euthymic affect Results & Data Vital Signs (Past 12 Hours) Vital Signs Temp Pulse Pulse Resp BP Pulse Ox O2 Del Method 03/21/24 11:09 95 H 18 141/82 H 94 Room Air 03/21/24 10:54 91 H 18 165/96 H 97 Oxymask 03/21/24 10:39 87 12 111/75 98 Oxymask 03/21/24 09:27 36.1 C L 90 20 154/101 H 95 Room Air 03/21/24 07:57 36.9 C 98 H 16 160/96 H 94 Room Air 03/21/24 07:43 90 03/21/24 02:51 36.4 C L 93 H 16 153/74 H 93 Room Air 03/20/24 23:36 83 O2 Flow Rate 03/21/24 11:09 03/21/24 10:54 2 03/21/24 10:39 6 03/21/24 09:27 03/21/24 07:57 03/21/24 07:43 03/21/24 02:51 03/20/24 23:36 PG Care Time/CCT Total # of Minutes Spent Total Time Spent with Patient: Total time spent is greater than 50% in coordination of care (as documented) at patient's floor/unit and/or counseling patient: Coding Level of Care Code 94048 INT INP/OBS CARE 75MIN Diagnoses Colon cancer C18.9 Bowel obstruction K56.609
[2024-03-21] MEDS ORDERED: cefTRIAXone SODIUM 2,000 MG/50 ML BAG IV STA (12:31)
--- NOTE | 2024-03-21 12:51 | XRay Report ---
XR abdomen 2V w PA chest HISTORY: 63 years-old Female Colonic obstr post decompression. R/O free air COMPARISON: KUB and CT abdomen and pelvis studies 03/20/2024 TECHNIQUE: PA view of the chest with erect and supine views of the abdomen FINDINGS: Left subclavian Ioxopu-t-Suop catheter is unchanged. Cardiac silhouette is normal in size. No pneumot horax or large pleural effusion. Mild subsegmental bibasilar densities favor atelectasis. Distal tip of enteric tube is noted within the left midabdomen. Large amount of pneumoperitoneum focu s in the abdominal right upper quadrant is new from prior. Moderate gaseous distention of the splenic flexure with colonic air-fluid levels. A rectal catheter is present. Decompressed bladder contains c ontrast. No urolith identified. IMPRESSION: 1. Interval development of a large amount of pneumoperitoneum compatible with perforated viscus. 2. Distal tip of enteric tube projects over the stomach. 3. Rectal catheter in place. 4. Mild left basilar predominant opacities favor atelectasis. ACT 112: Negative or not required by law. The above report was generated using voice recognition software. It may contain grammatical, syntax o r spelling errors. Electronically signed by: He Dick M.D. 03/21/2024 12:29 PM
[2024-03-21] MEDS ORDERED: metroNIDAZOLE 500 MG/100 ML BAG IV SCH (13:00)
--- NOTE | 2024-03-21 13:04 | Urology Consultation ---
<Statement entered by Mode Granados MD - 03/21/24 15:51> Hydronephrosis is likely due to mass effect from GI compression. Due to concern for bowel perforation, she is being transferred to tertiary center for surgical intervention. Additional urologic plan will eventually depend on outcomes of surgery and clinical course. Date of Consultation March 21, 2024 Assessment & Plan (1) Ureter obstruction: Plan 63yo female with a hx of colon cancer admitted with bowel obstruction. Urology consulted due to CT findings of left distal ureteral obstruction somewhere about the common iliac bifurcation with delayed left nephrogram and moderate hydronep hrosis. Pt is afebrile, hypertensive, mildly tachycardic at present Labs reviewed- WBC 11.77- 0.95- 1.39; Creatinine is normal UA without signs of infection or blood She is voiding spontaneously We reviewed her CT findings showing a distal left ureteral obstruction and moderate hydronephrosis. We discussed potential etiologies of the obstruction as well as possible left ureteral stent placement. Ureteral stents were discussed as well as postoperative issues and pain management. Risks/benefits discussed. She is agreeable to proceeding. Update- Pt underwent emergent colonoscopy with decompression this morning showing colonic obstruction likely related to peritoneal metastasis per notes. Surgery recommending transfer to tertiary care center. Given her acute GI concerns, no plan for intervention at this time. Her creatinine is stable. Hydronephrosis likely secondary to mass effect. Further plans will depend on her clinical course. Urology will follow along. Please call with any questions/concerns. History of Present Illness Attending Physician: Chavez Mcneil DO History of Present Illness 63 year old female with a past medical history of colon cancer who presented to the emergency room yesterday with constipation and abdominal pain and admitted for bowel obstruction. Urology was consulted for distal left ureteral obstruction found on CT imaging at time of admission. On admission, she was afebrile. Labs showing a white count of 11.77 and normal renal function. Urinalysis without signs of infection or blood Patient was admitted to medicine service. GI and Surgery consulted. CT abdomen pelvis- 1. Increased serosal implants/carcinomatosis typically involving the cecum. There is now rectal obstruction with severe colonic distention and moderate small bowel fluid. 2. The left distal ureter is obstructed somewhere about the common iliac bifurcation with delayed left nephrogram and moderate hydronephrosis. 3. Mild abdominal and pelvic ascites. 4. Stable heterogeneous exophytic mass from the right uterus. Patient seen at bedside today. She is awake and resting in bed on arrival. No acute distress. Has been NPO. Reports generalized lower abdominal pain. Denies left flank pain. Reports she is voiding without issue. Denies hematuria or dysuria. Denies prior history. Allergies Allergy/AdvReac Type Severity Reaction Status Date / Time levofloxacin Allergy Mild rash Verified 03/19/24 10:18 Penicillins Allergy Mild UNK- was Verified 03/19/24 10:18 as child Home Medications Medication Instructions Recorded Confirmed Type estradiol 0.01% (0.1 mg/gram) 0.5 appful vaginal 2XWK #42.5 grams 04/04/23 03/20/24 Rx vaginal cream (Estrace) prochlorperazine maleate 10 mg 10 mg PO Q6 PRN Nausea 03/20/24 03/20/24 History tablet Patient History Medical History Tremor Chronic, stable per PCP records History of cardiac murmur Per patient, mention of cardiac murmur in past No murmur noted per available 2023 exams/PCP records Colon cancer metastasized to intra-abdominal lymph node History of COVID-19 11/2023- mild symptoms, resolved Surgical History H/O colonoscopy (01/02/24) History of tonsillectomy and adenoidectomy (~1963) History of hand surgery (~2012) History of conization of cervix Family History Mother Dementia Hypertension Essential tremor Father Diabetes Hypertension Denies family history of Ovarian cancer Prostate cancer Myocardial infarction Breast cancer Colorectal cancer Social History Smoking Status: Never smoker Second Hand Exposure: No; Do You Dip or Chew Tobacco: No; Hx Alcohol Use: Yes Alcohol type: wine Alcohol Intake Frequency: 4 or More x per/Week Alcohol Intake Frequency Comment: Approx 6 glasses/week Hx Substance Use: No Preferred Language: South Sudanese Communication Ability: Effective 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 Operator 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 Beliefs That Will Affect Care: None marital status: Current Living Situation: Spouse current occupational status: retired How many Children do You have: 0 Feels Safe at Home: Yes Diet: regular during the past year weight has: remained stable Assistive Devices: None Review of Systems Review of Systems: All systems reviewed & are unremarkable except as noted in HPI & below Physical Exam Constitutional: no acute distress ENMT: NG tube in place Respiratory: no respiratory distress and no labored breathing Musculoskeletal: Head/Neck/Chest: normocephalic Neurologic: awake Psychiatric: Orientation: alert and cooperative Results & Data Vital Signs (Past 12 Hours) Vital Signs Temp Pulse Pulse Resp BP Pulse Ox O2 Del Method 03/21/24 12:43 94 Nasal Cannula 03/21/24 12:25 36.4 C L 103 H 18 126/84 90 Room Air 03/21/24 11:09 95 H 18 141/82 H 94 Room Air 03/21/24 10:54 91 H 18 165/96 H 97 Oxymask 03/21/24 10:39 87 12 111/75 98 Oxymask 03/21/24 09:27 36.1 C L 90 20 154/101 H 95 Room Air 03/21/24 07:57 36.9 C 98 H 16 160/96 H 94 Room Air 03/21/24 07:43 90 03/21/24 02:51 36.4 C L 93 H 16 153/74 H 93 Room Air O2 Flow Rate 03/21/24 12:43 2.5 03/21/24 12:25 03/21/24 11:09 03/21/24 10:54 2 03/21/24 10:39 6 03/21/24 09:27 03/21/24 07:57 03/21/24 07:43 03/21/24 02:51 PG Care Time/CCT Total # of Minutes Spent Total Time Spent with Patient: Total time spent is greater than 50% in coordination of care (as documented) at patient's floor/unit and/or counseling patient: Coding Level of Care Code 45550 INT INP/OBS CARE 2MIN Diagnoses Ureter obstruction N13.5
[2024-03-21 13:30] VITALS: BP 128/83; TEMP 97.3; O2SAT 95
[2024-03-21 14:07] VITALS: PULSE 100
--- NOTE | 2024-03-21 15:08 | Discharge Summary ---
Date of Service March 21, 2024 Admission HPI Per Admitting Provider Patient is a 63-year-old female with a past medical history of colon cancer, underwent first round of chemotherapy Friday 03/10. She is being admitted for a bowel obstruction to undergo surgical decompression with GI 03/21; NG tube placed and n.p.o. patient may need transfer to tertiary care center after surgical evaluation during intervention. She is also found to have left distal ureter obstruction, urology consulted. She follows with Dr. Yi at the [facility] and Dr. Becerril with [facility]; Dr. Becerril consulted. Patient seen at bedside with her present. She stated her last bowel movement was approximately 8 days ago last Sunday. She had her first round of chemotherapy on Friday 03/10. She stated she has had a decreased appetite since then, however has still been eating. She has tried taking MiraLAX on Sunday, Dulcolax yesterday, and mag citrate this afternoon which she threw up. She also had 1 episode of vomiting last night. She denies nausea currently. She denies dyspnea but endorses heavy breathing, as she chronically has when she is feeling sick. She has abdominal distention, and also states her abdomen is uncomfortable but denies pain. She stated she has had decreased urination today but has not been eating or drinking much, denies difficulty urinating or dysuria. She denies fevers, chills, chest pain. Patient does not use nicotine products or drink alcohol. She has no significant past medical history other than the colon cancer, no HTN, DM, previous VTE. She does not take any regular home medications other than a daily multivitamin. She does not use oxygen at baseline. She wishes to be full code at this time. Handoff from ED provider stated that she spoke with GI, Dr. Angela, who is planning for an acute decompression tomorrow morning, based off evaluation during surgical intervention may need transfer to tertiary care center. Dr. Angela recommended a rectal exam in which ER provider stated no rectal dilation, vault empty, palpable mass. NG tube placed in ED. Admission Exam Per Admitting Provider The patient is awake, alert and oriented 3, well developed and well nourished, normocephalic and atraumatic, in no acute distress. Non-toxic appearing. HEENT- EOMI, mucous membranes moist. Hearing grossly intact. Heart-normal S1 and S2. No murmurs, rubs or gallops. Lungs-clear bilaterally, no respiratory distress, no accessory muscle use. Abdomen- Non-tender. Moderate distention, NG tube placed. Extremities- no clubbing, cyanosis, or edema. Rheumatologic-normal range of motion. Psychiatric-normal affect. Principal Diagnosis Colon cancer Bowel obstruction with perforation Discharge Exam The patient is awake, alert and oriented 3, well developed and cachetic, normocephalic and atraumatic, in acute distress, pale looking, NG tube placed. HEENT- EOMI, mucous membranes moist. Hearing grossly intact. Heart-normal S1 and S2. No murmurs, rubs or gallops. Lungs-clear bilaterally, no respiratory distress, no accessory muscle use. Abdomen- Severely distended, Tense tender diffuse, BS absent. Discharge Data Allergies Allergy/AdvReac Type Severity Reaction Status Date / Time levofloxacin Allergy Mild rash Verified 03/19/24 10:18 Penicillins Allergy Mild UNK- was Verified 03/19/24 10:18 as child Consultations 03/20/24 20:04 Consult Gastroenterology Stat 03/20/24 20:12 ED Decision to Admit Stat 03/20/24 21:10 Consult Urology Routine 03/20/24 23:10 Consult Oncology Routine 03/21/24 11:07 Consult General Surgery Routine Procedures Performed Operation Date: 03/21/24 17:15 Actual Procedures p Colonoscopy with Decompression Tube Plac - Uziel Angela MD Ordered Studies 03/20/24 17:32 CT abd pelvis IV con only Stat Hospital Course (1) Colon cancer: (2) Bowel obstruction: (3) Perforation bowel: Plan # Bowel obstruction and perforation Sec to colon cancer; extensive peritoneal extension, possible periureteric invasion, pelvic mets as well. * pretty complicated given mx was decided after tumor board discussion at [facility], neoadjuvant chemo before decompression surgery. *hx of colon cancer s/p 1st tx of chemotherapy 03/10 no bowel movement since 03/11 KUB shows constipation and colonic ileus AP CT showing total obstruction with severe colonic distention and moderate small bowel fluid, mild abdominal and pelvic ascites Decompression attempted by GI team today, unsuccessful Meanwhile she developed perforation and condition seemed worsening Gen surgery team consulted; rec higher center referral. Worsening vitals compared to admission; transferred to [facility]. Total Time Total Time Spent Total Time Spent (In Minutes): See attending's attestation Discharge Plan Discharge Items Patient Disposition: Transfer Acute Care Hospital Reason For Visit: BOWEL OBSTRUCTION, URETER OBSTRUCTION, COLON CANCE Discharge Diagnosis: Bowel perforation, Cecal carcinoma Activity: Per Instructions section Non-emergency contact: Primary Care Provider and Surgeon Call non-emergency contact if: your symptoms worsen Follow-up/Referrals: Je Diez MD [Primary Care Provider] - Diet: Regular Addtl Attending Provider Instructions: Susan 63 years with diagnosed case of Colon cancer with mets, S/P 1st cycle of neoadjuvant chemotherapy 10 days back. Presented with obvious Bowel obstruction at ED a days back. GI team attempted Strawberry decompression-- unsuccessful. New perforation on imaging, vitals worsening. Talked to Surgery team at [facility] Dr. Bautista and team. They agree patient needs immediate surgery and urgent transfer. Patient and her agrees with this plan. Pending Studies at Discharge: No Stand-Alone Forms: My [facility] Skilled Items Patient informed of condition?: Yes DNR: No Discharge Level of Care: Other Communicable Disease: No Discharge Prognosis: Deteriorating Lines: Peripheral IV Urinary Catheter: No Medications and DC Order Prescriptions: Continued estradiol [Estrace] 0.01 % (0.1 mg/gram) cream 0.5 appful PV 2XWK Qty: 42.5 11RF prochlorperazine maleate 10 mg tablet 10 mg PO Q6 PRN (Reason: Nausea) Discharge Orders: Discharge Order (Routine); Ordered 03/21/24 Ordered By: Latanya Moore Admission Data Admit Date/Time: 03/20/24 21:10 Attending Provider: Chavez Mcneil Admit Provider: León Redding Primary Care Provider: Je Diez Other Providers: Uziel Angela; León Redding; Mode Granados; Christian Becerril; Yumiko Cervantes; Taras Woo; Jason Patton; Keyon Sanders; Tani Corona; Vane Ding; Alfonso Simmons; Paddy Rucker; Esequiel Magallanes; Anjali Donahue; Rey Cottrell Other Interventions: Discharge Summary Assessment (RN) Last Done: 03/21/24 13:43 Supervising Physician Co-Signing Physician Notes I personally examined the patient and verified all carias points of history and exam, discussed case, and agree with decision making with Dr Moore Seen post colonoscopy. Very few complaints because she is largely overwhelmed with the whole situation and transfer to tertiary, answered questions to the best of my ability of her and her . Discussed with GI in the room as wellinput greatly appreciated. Vitals noted, in general she is awake and alert breathing somewhat rapidly but otherwise appearing surprisingly calm. Exam otherwise as above. X-rays noted. Perforation/free airceftriaxone and metronidazole initiated, transfer to tertiary for tertiary surgical evaluation done stat with air transport given the tenuous nature of her situationshe looks surprisingly stable when I saw her, but obviously with the large amount of free air I would anticipate she would start to develop sepsis and be at risk of septic shock fairly quicklyhence the immediate onset of antibiotics, ongoing isotonic fluids, and rapid transfer. Large bowel obstruction related to pelvic malignancyfor transfer Otherwise as above.
--- NOTE | 2024-03-21 17:55 | Billing Data ---
Date of Service March 21, 2024 Coding Level of Care Code 86919 IN/OBS DISCH 30 MIN/LESS
--- NOTE | 2024-03-21 23:15 | Electrocardiogram Report ---
Test Reason : Blood Pressure : */* mmHG Vent. Rate : 94 BPM Atrial Rate : 94 BPM P-R Int : 152 ms QRS Dur : 92 ms QT Int : 362 ms P-R-T Axes : 44 -37 25 degrees QTcB Int : 452 ms Normal sinus rhythm Left axis deviation Abnormal ECG When compared with ECG of 29-Feb-2024 12:47, Vent. rate has increased by 40 bpm Confirmed by Neri Cardoso ([id number]) on 03/21/2024 11:14:42 PM Referred By: Mary Jo Hernandez Confirmed By: Neri Cardoso
== END 2024-03-21 14:47 | disposition short-term general hospital (02) | DRG 388 ==
LOC: ED 16:39 → 2W 21:10 → SUATTDRO 21:10 → 2W 23:24

== ENCOUNTER 2024-04-18 12:00 | Inpatient (IN) ==
--- NOTE | 2024-04-18 15:28 | History & Physical Report ---
Date of Service April 18, 2024 Assessment & Plan (1) Colon cancer: Plan: Susan is a 63-year-old female with a recent medical history of metastatic colon cancer with peritoneal carcinomatosis who initially presents to [facility] with a large bowel obstructed and was transferred to [facility] where she underwent subtotal colectomy for perforation with open abdomen taken back for closure 03/21 and placement of end ileostomy and sigmoid mucous fistula on 03/23. She has a complicated history including suspected bile leak, IJ thrombosis, and poor progression with malnutrition. On extensive discussions with her oncologic and surgical teams unfortunately has no further surgical or chemotherapeutic treatment options. After meeting with palliative care did wish for transfer back to [facility] to transition to comfort measures with her highest goal being with friends and family. Goals of care: Reviewed goals with pt on admission. She reports that her goal now that she is back home is to transition to comfort care measures. Her most important values to see friends and family. Does not wish for hospice at home as she would like her do not have to fill the role of caregiver. She does wish to be comfort measure at time of admission to the hospital. Reviewed each of her medications and the plan in detail. With respect to her IV antibiotics would like to continue these more for comfort and does not expect these to extend the length of her life but because of the complications with bowel infection which may not have adequate source control would like these continued for comfort which is certainly reasonable. She does not have strong feelings about her Lovenox however given that she is tolerating it well and IJ thrombosis can be uncomfortable we will continue this unless she gets lightheaded or dizzy and then would discontinue this at that time. She does not wish for further blood checks even if she were in the anemic would not want intervention for this so we will discontinue these. She does want to continue TPN for couple of more days to try to maximize her nutrition and alertness so she can see friends and family, and ultimately does not plan on continuing this long-term. Will continue BMP/mag/Phos for TPN compounding while this is continued. Confirms DNR/DNI status. She is pleasant and in no acute distress and reports she is in no pain at time of bedside exam. Would like to know if she can have her visit robert, [place] discuss with nursing staff to make an exception for visiting hours so that he can see her. Update was given to her Ashutosh at [phone], and cousin in law Dr. Diez by phone. No additional questions at time of bedside visit. First appreciation of care Metastatic colon carcinoma s/p subtotal colectomy with bowel leak, now comfort care measures Surgical intervention history: 03/21/2024: Exploratory laparotomy, abdominal washout, subtotal colectomy 03/23/2024: Re X laparotomy, abdominal washout, small bowel resection 03/07/2024: CT-guided peritoneal drain placement 04/07/2024: Cystoscopy, clot evacuation, fulguration, left retrograde pyelogram 04/10/2024: Exploratory laparotomy, washout, repair of enterotomy, abdominal closure with Stratus mesh CHALINO drain and accordion drain remain in place. These are anticipated to be left until end-of-life. Minimal output in drains at time of bedside assessment on arrival to the hospital Antibiotics continued it is felt these are likely giving her meaningful quality of life improvement. There has been concern for possible bowel leak although drainage has decreased from her CHALINO drain overall No further surgical intervention/revision anticipated - Cefepime 2 g every 12 hours last given 02/15 at 1444, Flagyl 500 mg every 8 hours, vancomycin 500 mg every 24 hours last given 02/15 at 1242 - Diflucan 400 mg IV every 24 hours last given 02/15 1635 - Lovenox 60 mg every 12 hours last given at 1249 04/08/2024 May transition wound VAC to wet-to-dry dressing per surgical team at [facility]. [place] care nurse has been consulted for additional care IJ thrombosis Continued on Lovenox twice daily. Last dose at [facility] was 60 mg at 1249 on 04/18 FEN/GI: Patient would like to continue TPN for at least a couple of days while she meets friends and families to maximize her nutrition and alertness. Will continue BMP/mag/Phos for compounding while this is continued TPN Clears as tolerated. May advance as tolerated per patient for comfort feeding Drain care Right paracolic CHALINO drain , left upper CHALINO paracolic gutter and pelvis, left mid CHALINO to liver fossa, right accordion drain in pelvis Ostomy care Ostomy nurse consulted. Slightly retracted, otherwise intact History of Present Illness Primary Care Provider: MD Susan Boyd is a 63-year-old female with a recent medical history of metastatic colon cancer with peritoneal carcinomatosis who initially presents to [facility] with a large bowel obstructed and was transferred to [facility] where she underwent subtotal colectomy for perforation with open abdomen taken back for closure 03/21 and placement of end ileostomy and sigmoid mucous fistula on 03/23. PER CHART REVIEW AND TRANSFER DISCUSSION W/ [facility]: [facility] postoperative course was complicated with intra-abdominal abscesses, suspected bile leak, UTI, and development of IJ DVT. She also had malignant hydronephrosis found on cystoscopy with left ureteral stent placement, and surgical site was complicated by fascial dehiscence which subsequently required ex lap abdominal washout and wall reconstruction with Strattice mesh on 04/10/2024. She subsequently underwent wound VAC placement and was monitored over the next several days. Overall clinically progressed poorly with multiple complications. Did review with surgical team [facility]. Unfortunately patient does not have additional medical options available, she is not a candidate for ongoing chemotherapy and abdominal antibiotics while helping to stabilize the patient likely limited by suspected enteric compromise. Goals of care discussions were had between primary team, palliative care. On goals of care discussion at family meeting 04/17 patient expressed her main desire to return home to [facility]. Home hospice was discussed however patient does not wish to pursue this due to her severe level of illness, would consider transition to palliative care to facility but does not want her family to have to care for her and would like her to be able to be her at end-of-life rather than having to be her caregiver. On discussion with her teams [facility] patient would like to continue TPN, IV antibiotics, and anticoagulation although recognized that these were unlikely to change her long-term outcome and can be discontinued with transition to comfort measures at any point. As it was felt that with possible enteric leak that the IV antibiotics were playing a meaningful role in quality of life is felt to be reasonable to continue. Goals of care and medical condition discussed extensively with surgical team by phone with transfer center. He is medically complex with metastatic cancer and multiple complications and likely has a prognosis days to short weeks by PPS. Given that her goals of care are to be in [facility] and with the intention to transition to a palliative oriented goals appropriate to transfer back to this facility on [facility]O level of care at this time. Palliative care and oncology have been involved in discussions and will help to facilitate any orders as needed. Care Items at time of transfer from [facility]: - Left IJ DVT: Continue Lovenox twice daily. Patient does have hematuria without significant hemoglobin drop, will continue Lovenox for now. - Severe malnutrition: With cachexia, muscle wasting on supplemental TPN. May continue TPN for now however can wean/discontinue this for comfort at any time - Abdominal wall dehiscence s/p reconstruction: Wound VAC to be transition to wet-to-dry dressings. Routine wound care. - Subtotal colectomy s/p fistula formation complicated by bile leak: With 3 CHALINO drains and [address] CHALINO drain #3 initially with increased output concerning for enteric leak has had minimal output in the last 48 hours. Discussed with surgical team, based on prognosis and clinical condition expect that these will remain in place until end-of-life. - LESLY/azotemia: Creatinine stable, remains with azotemia. Patient did have hydronephrosis due to malignant obstruction s/p stent placement. Ultimately stent is expected to fail at some point however further modification of this is not felt to be likely to significantly change her course Cefepime 2 g every 12 hours last given 02/15 at 1444, Flagyl 500 mg every 8 hours, vancomycin 500 mg every 24 hours last given 02/15 at Diflucan 40 mg IV every 24 hours last given 02/14 1635 Lovenox 60 mg every 12 hours last given at 1249 04/08/2024 Seen at the bedside on arrival to 3 . On open discussion of her understanding of her history and plan of care moving forward she reports "I know I am going to probably in a week or 2, but I wanted to be back in [place] to see family and friends ". Did review extensive discussions that she has had in her understanding of these with her prior care teams, and she notes that her goal now that she is back home is to transition to comfort care measures. Her most important values to see friends and family. Does not wish for hospice at home as she would like her do not have to fill the role of caregiver. She does wish to be comfort measure at time of admission to the hospital. Reviewed each of her medications and the plan in detail. With respect to her IV antibiotics would like to continue these more for comfort and does not expect these to extend the length of her life but because of the complications with bowel infection which may not have adequate source control would like these continued for comfort which is certainly reasonable. She does not have strong feelings about her Lovenox however given that she is tolerating it well and IJ thrombosis can be uncomfortable we will continue this unless she gets lightheaded or dizzy and then would discontinue this at that time. She does not wish for further blood checks even if she were in the anemic would not want intervention for this so we will discontinue these. She does want to continue TPN for couple of more days to try to maximize her nutrition and alertness so she can see friends and family, and ultimately does not plan on continuing this long-term. Will continue BMP/mag/Phos for TPN compounding while this is continued. Confirms DNR/DNI status. She is pleasant and in no acute distress and reports she is in no pain at time of bedside exam. Would like to know if she can have her visit eden jones discuss with nursing staff to make an exception for visiting hours so that he can see her. Update was given to her Ashutosh at [phone], and cousin in law Dr. Diez by phone. No additional questions at time of bedside visit. First appreciation of care Medical History: Reviewed Medications: Reviewed Surgical History: Reviewed Family history: Reviewed Allergies: Reviewed Social History: Reviewed Code Status: DNR/DNI, [employer] Allergies Allergy/AdvReac Type Severity Reaction Status Date / Time levofloxacin Allergy Mild rash Verified 03/19/24 10:18 Penicillins Allergy Mild UNK- was Verified 03/19/24 10:18 as child Home Medications Medication Instructions Recorded Confirmed Type estradiol 0.01% (0.1 mg/gram) 0.5 appful vaginal 2XWK #42.5 grams 04/04/23 03/20/24 Rx vaginal cream (Estrace) prochlorperazine maleate 10 mg 10 mg PO Q6 PRN Nausea 03/20/24 03/20/24 History tablet Past Med/Surg History Problem List (Updated 03/30/24 @ 00:07 by David Hines) Perforation bowel Colon cancer Anemia Leukocytosis Ureter obstruction Bowel obstruction Acute hyponatremia (Acute) Rectal obstruction (Acute) Port-A-Cath in place (03/06/24) Insertion of Access Port Left Subclavian with Fluoroscopy (Left) - Keyon Sanders DO Colon cancer metastasized to intra-abdominal lymph node Medical History Tremor Chronic, stable per PCP records History of cardiac murmur Per patient, mention of cardiac murmur in past No murmur noted per available 2023 exams/PCP records Colon cancer metastasized to intra-abdominal lymph node History of COVID-19 11/2023- mild symptoms, resolved Surgical History H/O colonoscopy (01/02/24) History of tonsillectomy and adenoidectomy (~1963) History of hand surgery (~2012) History of conization of cervix Family History Mother Dementia Hypertension Essential tremor Father Diabetes Hypertension Denies family history of Ovarian cancer Prostate cancer Myocardial infarction Breast cancer Colorectal cancer Social History Smoking Status: Never smoker Second Hand Exposure: No; Do You Dip or Chew Tobacco: No; Hx Alcohol Use: Yes Alcohol type: wine Alcohol Intake Frequency: 4 or More x per/Week Alcohol Intake Frequency Comment: Approx 6 glasses/week Hx Substance Use: No Preferred Language: Gabonese Communication Ability: Effective Plodder Operator 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 Beliefs That Will Affect Care: None marital status: Current Living Situation: Spouse current occupational status: retired How many Children do You have: 0 Feels Safe at Home: Yes Diet: regular during the past year weight has: remained stable Assistive Devices: None Physical Exam Physical Exam: General: A&Ox3. NAD. Cooperative. Cachectic, not acutely toxic HEENT: Atraumatic, normocephalic. MM dry. Pulm: CTAB A&P. -wheezes, -rales, -rhonchi. Symmetrical chest rise. No increased work of breathing. No respiratory distress. Cardiac: RRR, -mrg. Radial pulses intact and symmetrical. ABD: RUQ CHALINO Drain, RLQ ag drain, Stomach Wound Vac in place, LLQ bag drain, LUQ 2x CHALINO drain, Dumont in place. All drains with minimal output at time of arriving assessment. Dumont is draining dark reddish urine. +BL LE edema PG Care Time/CCT Total # of Minutes Spent Total Time Spent with Patient: Total time spent is greater than 50% in coordination of care (as documented) at patient's floor/unit and/or counseling patient: Coding Level of Care Code 71241 INT INP/OBS CARE MIN Diagnoses Colon cancer C18.9
[2024-04-18] MEDS ORDERED: PROCHLORPERAZINE 10 MG in SYRINGE 8 ML IV PRN (17:57)
[2024-04-18] MEDS ORDERED: HYDROmorphone INJ 2 MG/ML SYR/VIAL IV PRN (17:57)
[2024-04-18] MEDS ORDERED: HYDROmorphone INJ 1 MG/ML SYRINGE IV PRN (17:57)
[2024-04-18] MEDS ORDERED: oxyCODONE HCL IR 5 MG TAB (IMMEDIATE RELEASE) PO PRN (18:02)
[2024-04-18] MEDS ORDERED: VANCOMYCIN CONSULT ACTIVE PRN (18:11)
[2024-04-18] MEDS ORDERED: LORazepam 2 MG/1 ML VIAL IV PRN (19:01)
[2024-04-18] MEDS ORDERED: DEXTROSE 10% 1,000 ML IV PRN (19:06)
[2024-04-18] MEDS ORDERED: TPN/PPN CONSULT PHARMACY STA (19:36)
[2024-04-18] MEDS ORDERED: TPN/PPN CONSULT PHARMACY SCH (19:38)
[2024-04-18] MEDS: metroNIDAZOLE 500 MG/100 ML BAG IV SCH (21:15)
[2024-04-18] MEDS: ENOXAPARIN INJ 60 MG/0.6 ML SYR SQ SCH (21:16)
[2024-04-18] MEDS: Patient's HEIGHT &/or WEIGHT Needed STA (22:18)
[2024-04-19] MEDS: CEFEPIME 2000MG 2,000 MG/20 ML SYR IV SCH (02:01)
[2024-04-19] MEDS ORDERED: ACETAMINOPHEN 500 MG TAB PO PRN (02:09)
[2024-04-19] MEDS: ACETAMINOPHEN 1,000 MG/100 ML VIAL IV STA (02:49)
[2024-04-19 06:06] LABS: BUN Creatinine Ratio 61.7 (10-20); Calcium 9.4 mg/dl (8.6-10.3); Creatinine Clr Calc Pharmacy 38.7 ml/min; Magnesium 2.3 mg/dl (1.7-2.4); Phosphorus 3.9 mg/dl (2.5-4.9)
--- NOTE | 2024-04-19 10:42 | Hospitalist Progress Note ---
Date of Service April 19, 2024 Assessment & Plan (1) Colon cancer: Plan: Susan is a 63-year-old female with a recent medical history of metastatic colon cancer with peritoneal carcinomatosis who initially presents to [facility] with a large bowel obstructed and was transferred to [facility] where she underwent subtotal colectomy for perforation with open abdomen taken back for closure 03/21 and placement of end ileostomy and sigmoid mucous fistula on 03/23. She has a complicated history including suspected bile leak, IJ thrombosis, and poor progression with malnutrition. On extensive discussions with her oncologic and surgical teams unfortunately has no further surgical or chemotherapeutic treatment options. After meeting with palliative care did wish for transfer back to [facility] to transition to comfort measures with her highest goal being with friends and family. Goals of care: Admitting hospitalist reviewed goals with pt on admission. She reports that her goal now that she is back home is to transition to comfort care measures. Her most important values to see friends and family. Does not wish for hospice at home as she would like her do not have to fill the role of caregiver. She does wish to be comfort measure at time of admission to the hospital. currently comfortable with no new needs. continue comfort care; anticipate she will likely pass fairly quickly given her large disease burden and overall frail state. Metastatic colon carcinoma s/p subtotal colectomy with bowel leak, now comfort care measures Surgical intervention history: 03/21/2024: Exploratory laparotomy, abdominal washout, subtotal colectomy 03/23/2024: Re X laparotomy, abdominal washout, small bowel resection 03/07/2024: CT-guided peritoneal drain placement 04/07/2024: Cystoscopy, clot evacuation, fulguration, left retrograde pyelogram 04/10/2024: Exploratory laparotomy, washout, repair of enterotomy, abdominal closure with Stratus mesh CHALINO drain and accordion drain remain in place. These are anticipated to be left until end-of-life. Minimal output in drains at time of bedside assessment on arrival to the hospital Antibiotics continued it is felt these are likely giving her meaningful quality of life improvement. There has been concern for possible bowel leak although drainage has decreased from her CHALINO drain overall No further surgical intervention/revision anticipated - Cefepime 2 g every 12 hours last given 02/15 at 1444, Flagyl 500 mg every 8 hours, vancomycin 500 mg every 24 hours last given 02/15 at 1242 - Diflucan 400 mg IV every 24 hours last given 02/15 1635 - Lovenox 60 mg every 12 hours last given at 1249 04/08/2024 May transition wound VAC to wet-to-dry dressing per surgical team at [facility]. Wound care nurse has been consulted for additional care ---> for now could continue abx since infections often cause significant discomfort IJ thrombosis Continued on Lovenox twice daily given that clots can cause discomfort and right now she's tolerating anticoagulation OK FEN/GI: Patient would like to continue TPN for at least a couple of days while she meets friends and families to maximize her nutrition and alertness. Will continue BMP/mag/Phos for compounding while this is continued TPN Clears as tolerated. May advance as tolerated per patient for comfort feeding Drain care Right paracolic CHALINO drain , left upper CHALINO paracolic gutter and pelvis, left mid CHALINO to liver fossa, right accordion drain in pelvis Ostomy care Ostomy nurse consulted. Slightly retracted, otherwise intact Admission and Anticipated Discharge Date Admission Date: April 18, 2024 Subjective no new complaints. feels that symptoms are adequately controlled. reiterates that her goal is to be able to spend time with loved ones before she passes Review of Systems Review of Systems: All systems reviewed & are unremarkable except as noted in HPI & below Physical Exam Physical Exam: frail, thin, fatigued, but nad. heent nc at mmm breathing unlabored no accessory muscles good effort skin no rashes no pallor or icterus neuro no focal deficits Results & Data Results & Data Vital Signs (Past 12 Hours) Vital Signs Temp Pulse Resp BP Pulse Ox O2 Del Method 04/19/24 07:46 97.5 F L 79 18 137/82 98 Room Air PG Care Time/CCT Total # of Minutes Spent Total Time Spent with Patient: Total time spent is greater than 50% in coordination of care (as documented) at patient's floor/unit and/or counseling patient: Coding Level of Care Code 25937 SUB INP/OBS CARE 235MIN Diagnoses Colon cancer C18.9
--- NOTE | 2024-04-19 11:03 | Pharmacy Report ---
Pharmacy PK ABX Note - Date of Service April 19, 2024 - Assessment and Plan Assessment 63 year old F receiving vanco, fluconazole,metronidazole,cefepime for bowel infection- patient transitioning to comfort with ongoing antibiotics in anticipation this is helping with patient comfort as source control not achieved. Previously on vancomycin 500 mg q24H at [place]. Random level this morning 17.4 mcg/ml. Patient is continuing with TPN for a few days as patient is visiting with friends/family. Will obtain random level with TPN labs in the morning to help assist dosing for now. Plan Vancomycin * Maintenance dose: 500 mg IV every 24 hours * Random level with TPN labs 2/16 AM Pharmacy will continue to follow and will adjust dose/frequency as necessary. Thank you. Pharmacy has transitioned to AUC monitoring for vancomycin. AUC/MICHAELA is the preferred PK/PD target and is associated with decreased risk of nephrotoxicity compared to traditional trough targets.
[2024-04-19] MEDS: VANCOMYCIN HCL 500 MG in SODIUM CHLORIDE 0.9% 250 ML IV SCH (13:19)
--- NOTE | 2024-04-19 13:43 | Pharmacy Report ---
Pharmacy Initial PN Consult Nt - Date of Service April 19, 2024 - Scope Pharmacy has been consulted on this date to manage parenteral nutrition orders and order appropriate labs. As part of the Nutrition Support Team Guidelines, pharmacy will work in conjunction with dietary when determining the patients caloric needs. - Subjective * The patient is a 63 year old Female admitted on 04/18/24 for COLON PERG, LARGE BOWEL OBSTRUCTION, URETAL OBSTRU. * Patient is to receive parenteral nutrition for comfort needs to sustain patient until she has a chance to say goodbye to her family/friends. * Pertinent PMHx: * metastatic colon cancer with peritoneal carcinomatosis who initially presents to [facility] with a large bowel obstructed and was transferred to [facility] where she underwent subtotal colectomy for perforation with open abdomen taken back for closure 03/21 and placement of end ileostomy and sigmoid mucous fistula on 03/23. She has a complicated history including suspected bile leak, IJ thrombosis, and poor progression with malnutrition. After meeting with palliative care did wish for transfer back to [facility] to transition to comfort measures with her highest goal being with friends and family. - Objective Vascular Access: * Patient currently has a central line, PICC Height & Weight (Last Documented) Height 5 ft 6 in Weight 74 kg Diet Order(s) Clear liquid Intake & Ouput (24hrs) 04/18/24 04/19/24 04/20/24 06:59 06:59 06:59 Intake Total 300 / 300 100 / 100 Output Total 1720 / 1720 Balance -1420 / -1420 100 / 100 Selected Laboratory Results 04/19/24 05:31 Sodium 137 Potassium 4.0 Chloride 103 Carbon Dioxide 28 Anion Gap 6 BUN 92 H Creatinine 1.49 H BUN/Creatinine Ratio 61.7 H Glucose 81 Calcium 9.4 Phosphorus 3.9 Magnesium 2.3 - Assessment & Plan Assessment: * Appreciate dietitians recommendations for macronutrients: * Clinimix 10/16 @ 80 ml/hr will provide 154 g of AAs, 269 g of Dextrose, in 1920 ml total volume. Add 50g of lipids/daily. Will provide 2030 kcals/day. This will meet patient's estimated needs at this time. * Gradually increase volume of TPN, to goal, over first few bags/days. Pt had been receiving TPN over 12 hour period at [facility]; unsure total volume. Could consider decrease to 1L total volume (~40 ml/hr) if PO intakes improve/goals of care transition. * Add 10 ml MVI & 1 ml trace micronutrients daily w/ initial use of 100 mg thiamine & 1 mg folic acid to manage re-feeding risk. Pharmacy to manage additional electrolytes. * Advance diet as medically appropriate. * Will still need to monitor labs to appropriately monitor TPN. Per plan w/ pharmcy 1x/day. Plan: * For Day #1 of TPN administration to start 04/20: (Will run D5NS for 04/19) * Macronutrients: * Amino Acids: 80 grams/day (goal 154 grams/day) * Dextrose: 140 grams/day (goal 269 grams/day) * Lipids: 50 grams/day (goal 50 grams/day) * Micronutrients: * TPN electrolytes: 20 mL/day - Contains 35 mEq Na, 20 mEq K, 4.5 mEq Ca, 5 mEq Mg, 35 mEq Cl, 29.5 mEq Acetate per 20 mL * Sodium phosphate: 15 mMol/day * Multivitamins: 10 mL/day * Trace elements: 1 mL/day * Thiamine: 100 mg/day * Folic Acid: 1 mg/day * Total volume of 1287 mL (including 250ml lipids) will be infused over 24 hours and will provide 1296 kcal/day * Labs will be ordered minimally due to palliative status. No further labs at this time per hospitalist. * Pharmacy will follow and adjust PN orders on a daily basis. Thank you!
[2024-04-19] MEDS: D5W AND NSS 1,000 ML IV SCH (14:33)
[2024-04-19] MEDS: FLUCONAZOLE 200 MG/100 ML BAG IV SCH (17:02)
[2024-04-19] MEDS: ACETAMINOPHEN 1,000 MG/100 ML VIAL IV PRN (22:12)
[2024-04-20 06:44] LABS: BUN Creatinine Ratio 56.7 (10-20); Calcium 8.8 mg/dl (8.6-10.3); Creatinine Clr Calc Pharmacy 35.2 ml/min; Potassium 3.6 mmol/L (3.5-5.1)
[2024-04-20] MEDS ORDERED: VANCOMYCIN 500 MG in NSS 100mL IV SCH (09:15)
[2024-04-20] MEDS ORDERED: SIMETHICONE 40 MG/0.6 ML 30ML PO PRN (10:36)
[2024-04-20] MEDS: FAMOTIDINE 20MG IV PUSH 20 MG/5 ML SYR IV STA (11:37)
[2024-04-20] MEDS: VANCOMYCIN 500 MG in NSS 100mL IV SCH (12:55)
[2024-04-20] MEDS: [UNRECOGNIZED DRUG - OTHER] IV SCH (16:20)
[2024-04-20] MEDS: CENTRAL TPN IV SCH (16:20)
[2024-04-20] MEDS: CLINOLIPID 20% IV FAT EMULSION 250 ML IV SCH (16:21)
--- NOTE | 2024-04-20 16:27 | Billing Data ---
Date of Service April 20, 2024 Coding Level of Care Code 66072 SUB INP/OBS CARE
--- NOTE | 2024-04-20 16:27 | Hospitalist Progress Note ---
Date of Service April 20, 2024 Assessment & Plan (1) Colon cancer: Plan: Susan is a 63-year-old female with a recent medical history of metastatic colon cancer with peritoneal carcinomatosis who initially presents to [facility] with a large bowel obstructed and was transferred to [facility] where she underwent subtotal colectomy for perforation with open abdomen taken back for closure 03/21 and placement of end ileostomy and sigmoid mucous fistula on 03/23. She has a complicated history including suspected bile leak, IJ thrombosis, and poor progression with malnutrition. On extensive discussions with her oncologic and surgical teams unfortunately has no further surgical or chemotherapeutic treatment options. After meeting with palliative care did wish for transfer back to [facility] to transition to comfort measures with her highest goal being with friends and family. Goals of care: Admitting hospitalist reviewed goals with pt on admission. She reports that her goal now that she is back home is to transition to comfort care measures. Her most important values to see friends and family. Does not wish for hospice at home as she would like her do not have to fill the role of caregiver. She does wish to be comfort measure at time of admission to the hospital. currently comfortable with no new needs. continue comfort care; anticipate she will likely pass fairly quickly given her large disease burden and overall frail state. continue current care for now Metastatic colon carcinoma s/p subtotal colectomy with bowel leak, now comfort care measures Surgical intervention history: 03/21/2024: Exploratory laparotomy, abdominal washout, subtotal colectomy 03/23/2024: Re X laparotomy, abdominal washout, small bowel resection 03/07/2024: CT-guided peritoneal drain placement 04/07/2024: Cystoscopy, clot evacuation, fulguration, left retrograde pyelogram 04/10/2024: Exploratory laparotomy, washout, repair of enterotomy, abdominal closure with Stratus mesh CHALINO drain and accordion drain remain in place. These are anticipated to be left until end-of-life. Minimal output in drains at time of bedside assessment on arrival to the hospital Antibiotics continued it is felt these are likely giving her meaningful quality of life improvement. There has been concern for possible bowel leak although drainage has decreased from her CHALINO drain overall No further surgical intervention/revision anticipated - Cefepime 2 g every 12 hours last given 02/15 at 1444, Flagyl 500 mg every 8 hours, vancomycin 500 mg every 24 hours last given 02/15 at 1242 - Diflucan 400 mg IV every 24 hours last given 02/15 1635 - Lovenox 60 mg every 12 hours last given at 1249 04/08/2024 May transition wound VAC to wet-to-dry dressing per surgical team at [facility]. Wound care nurse has been consulted for additional care ---> for now could continue abx since infections often cause significant discomfort IJ thrombosis Continued on Lovenox twice daily given that clots can cause discomfort and right now she's tolerating anticoagulation OK FEN/GI: Patient would like to continue TPN for at least a couple of days while she meets friends and families to maximize her nutrition and alertness. Will continue BMP/mag/Phos for compounding while this is continued TPN Clears as tolerated. May advance as tolerated per patient for comfort feeding Drain care Right paracolic CHALINO drain , left upper CHALINO paracolic gutter and pelvis, left mid CHALINO to liver fossa, right accordion drain in pelvis Ostomy care Ostomy nurse consulted. Slightly retracted, otherwise intact Admission and Anticipated Discharge Date Admission Date: April 18, 2024 Subjective felt like gas bubble in stomach after eating. that went away. otherwise no complaints Review of Systems Review of Systems: All systems reviewed & are unremarkable except as noted in HPI & below Physical Exam Physical Exam: gen aao fatigued but nad heent nc at mmm breathing unlabored no accessory muscles good effort skin no rashes, pale. Results & Data Results & Data Vital Signs (Past 12 Hours) Vital Signs Temp Pulse Resp BP Pulse Ox O2 Del Method 04/20/24 08:00 97.7 F 77 18 145/79 H 98 Room Air PG Care Time/CCT Total # of Minutes Spent Total Time Spent with Patient: Total time spent is greater than 50% in coordination of care (as documented) at patient's floor/unit and/or counseling patient: Coding Level of Care Code 16556 SUB INP/OBS CARE 2/35MIN Diagnoses Colon cancer C18.9
[2024-04-20] MEDS: ONDANSETRON INJ 2 MG/ML 2 ML VIAL IV PRN (17:41)
[2024-04-20] MEDS: FAMOTIDINE 20MG IV PUSH 20 MG/5 ML SYR IV SCH (22:01)
[2024-04-20] MEDS: STOP CLINOLIPID SCH (22:41)
--- NOTE | 2024-04-20 23:48 | Palliative Care Consultation ---
Date of Consultation April 20, 2024 Assessment & Plan (1) Dyspnea and respiratory abnormalities: Trial low dose Dilaudid 01. and 0.2mg IV q2h prn -orders written (2) Abdominal pain, acute, generalized: gas/distension/bloating She is trying to tolerate clear liquid diet, does not like jello (we have asked this no longer be included with meals) and finds juice/broth/ices are ok. Prefers ice water most of the time. Simethicone drops on order, added Levsin SL to try D/w Susan this may also be from IV Abtx and TPN, but for now will try to treat symptoms CHALINO drain and accordion drain remain in place. These are anticipated to be left until end-of-life. Minimal output in drains at time of bedside assessment on arrival to the hospital Antibiotics continued it is felt these are likely giving her meaningful quality of life improvement. There has been concern for possible bowel leak although drainage has decreased from her CHALINO drain overall May transition wound VAC to wet-to-dry dressing per surgical team [place] [facility] Wound care nurse has been consulted for additional care (3) Weakness generalized: (4) Anxiety disorder due to medical condition: (5) Advanced care planning/counseling discussion: I met with Susan at bedside for a 60 min face to face ACP/GOC discussion. We discussed her clinical course to date, prior discussions with PSH teams. She knows she is nearing the EOL and her time is short. She wants focus on QOL. She reports an understanding of her prognosis and expresses concerned after her . We discussed her fears regarding end-of-life symptoms, comfort and legacy planning. Discussed changes we all may move through in the dying process including but not limited to sleeping more, disorientation when awake, restlessness, diminished senses/inability to respond to stimulus although ability to be aware of them remains intact longer, changes in body temperatures, skin changes/mottling/cyanosis, respiratory pattern changes, oral secretions. Susan verbalized understanding. we agreed the goal is to assure a peaceful . We also agreed we would have daily check ins with each other about how she is feeling/what changes she noticed/what we think that might mean and any appropriate changes/descalation if needed at that junction. She is engaged, awake and alert throughout our discussion, emotional/tearfulness noted. I provided extensive end-of-life counseling regarding the expected symptom progression, such as fatigue, decreased appetite, increasing sleep and altered breathing patterns. We discussed the goals of care approach ensuring that we had routine focus on comfort at all times. We discussed some legacy projects to provide additional support to surviving spouse including writing a letter, creating a memory art project etc. She would like to proceed with letter writing, which we will work on through the next few days and she is going to think about the art project. She verbalized understanding and was receptive to the suggestions. We went through another cycle of supportive counseling and encouraged her to remain engaged in discussions and meaningful projects to her and provided emotional support and validation of feelings. She has a 20-year-old maintenance of way clerk feline that she would like to see before she dies, we discussed coordinating a visit. She expressed worries re: dying on her husbands birthday (05/10). We spoke about the potential she may before that date. Susan and I discussed at length the experience of her anticipatory grief, expressing her emotional concerns especially regarding her 's coping. We also spoke about her symptom progression at the end of life and how we would manage things as they arose. I provided reassurance and validation of her fears and encouraged open conversations with her about her emotions as well as practical matters as well as feeling free to communicate the same concerns to the medical teams to see what we can do to assist her. We spoke about GIP hospice which for now she declines as she wants to continue TPN and try to reach some legacy work goals. I provided education about the hospice benefit: an interdisciplinary program offered by nurses, nurses aides, social workers, chaplains and a medical operations supervisor for patients with a terminal condition and a life expectancy of less than 6 months. This is covered by Medicare at 100%/no out of pocket expense to patient and all meds/supplies needed by patient for the reason they are on hospice are paid for/covered by hospice. The goal is assure quality of life of the patient in their home setting (home, intermediate, inpatient hospice setting) by providing symptoms management, psychosocial and spiritual support. However, they cannot offer 24 hours care and if the family is unable to provide that care, they will have to consider personal care with out of pocket cost vs. intermediate placement. We discussed the goals of hospice as a patient service and the goals of care; we discussed EOL trajectories and transitions jacqueline the emotional impact of realizing mortality as a concrete reality from prior abstract considerations. Pt was reassured that no matter where they are along this trajectory, they are not alone - their medical team will remain by their side through their journey. Discussed the pros/cons of accepting help when especially weakened and distressed by pain-which would also help provide relief/decrease caregiver burden/strain. (6) Encounter for end of life care: (7) Palliative care by specialist: Introduced Palliative Medicine and explained our role in patient's care. Patient and/or family were receptive to palliative services for goals of care discussions. Reviewed we are different from hospice, a home health nurse visiting service. (8) Colon cancer metastasized to intra-abdominal lymph node: Plan As above. D/w Dr Schofield Thank you for allowing us to participate in the ongoing care of this patient. Please page with any additional concerns. Mitul Lao [facility] Director, Palliative Medicine History of Present Illness Reason for Consultation: EOL care Attending Physician: Chavez Mcneil DO History of Present Illness Susan has been transferred back to 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 She transferred to [facility] from [facility] for management of LBO with perforation during endoscopic decompression and is now s/p subtotal colectomy with end ileostomy c/b multiple fluid collections and she remains on TPN. Due to metastatic colon cancer with large bowel perforation, she is status post ex lap, subtotal colectomy with an open abdomen on March 21, 2024. Intra- abdominal fluid cultures on the revealed Enterococcus faecium and Diane albicans and she was placed on broad-spectrum antibiotics. She returned to the OR April 10, 2024 for fascial dehiscence with abdominal washout with closure and Stratus mesh. That wound was left to suction with a wound VAC. Postoperatively she developed leukocytosis in the setting of her ongoing perforated viscus and remained on cefepime, Flagyl, fluconazole, vancomycin. She has undergone ex lap with washout & repair of enterotomy, cysto, clot evac, fulguration, left retrograde pyelogram, CT guided peritoneal drain placement, re-opening of laparotomy with abd washout small bowel repair, another ex lap with washout, subtotal colectomy [facility] notes reviewed and scanned in record No further ca tx options available She remains on IV Abtx and TPN, oral intake slowly tolerated for pleasure She is hoping to have a few days to visit with close friends, family and say goodbyes. She has a 20yo [address] of [address] clerk feline she would like to see as well. In discussion with [facility] pall med teams, advised pt has some legacy work she would like our assistance with as well per admitting note: Metastatic colon carcinoma s/p subtotal colectomy with bowel leak, now comfort care measures Surgical intervention history: 03/21/2024: Exploratory laparotomy, abdominal washout, subtotal colectomy 03/23/2024: Re X laparotomy, abdominal washout, small bowel resection 03/07/2024: CT-guided peritoneal drain placement 04/07/2024: Cystoscopy, clot evacuation, fulguration, left retrograde pyelogram 04/10/2024: Exploratory laparotomy, washout, repair of enterotomy, abdominal closure with Stratus mesh CHALINO drain and accordion drain remain in place. These are anticipated to be left until end-of-life. Minimal output in drains at time of bedside assessment on arrival to the hospital Antibiotics continued it is felt these are likely giving her meaningful q uality of life improvement. There has been concern for possible bowel leak although drainage has decreased from her CHALINO drain overall May transition wound VAC to wet-to-dry dressing per surgical team [place] [facility] Wound care nurse has been consulted for additional care Allergies Allergy/AdvReac Type Severity Reaction Status Date / Time levofloxacin Allergy Mild rash Verified 03/19/24 10:18 Penicillins Allergy Mild UNK- was Verified 03/19/24 10:18 as child Home Medications Medication Instructions Recorded Confirmed Type estradiol 0.01% (0.1 mg/gram) 0.5 appful vaginal 2XWK #42.5 grams 04/04/23 03/20/24 Rx vaginal cream (Estrace) prochlorperazine maleate 10 mg 10 mg PO Q6 PRN Nausea 03/20/24 03/20/24 History tablet Patient History Medical History Tremor Chronic, stable per PCP records History of cardiac murmur Per patient, mention of cardiac murmur in past No murmur noted per available 2023 exams/PCP records Colon cancer metastasized to intra-abdominal lymph node History of COVID-19 11/2023- mild symptoms, resolved Surgical History H/O colonoscopy (01/02/24) History of tonsillectomy and adenoidectomy (~1963) History of hand surgery (~2012) History of conization of cervix Family History Mother Dementia Hypertension Essential tremor Father Diabetes Hypertension Denies family history of Ovarian cancer Prostate cancer Myocardial infarction Breast cancer Colorectal cancer Social History Smoking Status: Never smoker Second Hand Exposure: No; Do You Dip or Chew Tobacco: No; Hx Alcohol Use: No Hx Substance Use: No Preferred Language: Latvian Communication Ability: Effective Resident Care Associate 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 Beliefs That Will Affect Care: None marital status: Current Living Situation: Spouse current occupational status: retired How many Children do You have: 0 Feels Safe at Home: Yes Safety Concerns: Feels Safe At This Time Diet: regular during the past year weight has: remained stable Assistive Devices: None Review of Systems Review of Systems: All systems reviewed & are unremarkable except as noted in Subjective Physical Exam Constitutional: + ill appearing, + cachectic, + frail ap pearing, cooperative, + in distress, + diaphoretic and + malnourished Bitemp wasting Eyes: PERRL, conjunctivae normal, anicteric sclerae ENMT: Ears: no hearing impairment Mouth: + dry oral mucous membranes; no dentition abnormality and dentition not poor Throat: uvula midline Neck: trachea midline, no thyromegaly Respiratory: + labored breathing, + uses accessory mu scles, + pursed lip breathing and symmetric chest movement; + not able to speak in complete sentence Auscultation: + diminished lung sounds Cardiovascular: Rate/Rhythm: regular rate and regular rhythm Gastrointestinal (Abdomen): softly distended, TTP generalized midline wound w/dressing +retracted ostomy, mucous fistula with t an/?purulent output, right mid abd CHALINO drain (right paracolic gutter into pelvis), left upper CHALINO drain (in left paracolic gutter into pelvis), left mid abd drain (in the liver fossa), right drain Musculoskeletal: gen weakness BLE 2-3+ edema Skin: + turgor decreased, + dry skin, + pallor and + hair thinning Neurologic: AAOx3 Psychiatric: Eye Contact: good eye contact Speech: normal rate/rhyt hm/volume of speech Affect: + anxious affect and + tearful affect Thought Process: goal directed thought process, linear/logical thought process and clear/coherent thought process Thought Content: reality based without delusions Cognition: recent memory grossly intact, remote memory grossly intact, attention grossly intact and language grossly intact Estimated Intelligence: + above average estimated intelligence Insight: excellent ins ight Judgment: excellent judgement Results & Data Laboratory Results 04/20/24 04/19/24 Range/Units 05:31 05:31 Sodium 136 137 (136-145) mmol/L Potassium 3.6 4.0 (3.5-5.1) mmol/L Chloride 104 103 (98-107) mmol/L Carbon Dioxide 25 28 (21-32) mmol/L Anion Gap 7 6 (3-11) BUN 93 H 92 H (6-23) mg/dl Creatinine 1.64 H 1.49 H (0.6-1.2) mg/dl Est Cr Clr Drug Dosing 35.2 38.7 ml/min eGFR 34.53 38.74 BUN/Creatinine Ratio 56.7 H 61.7 H (10-20) Glucose 117 H 81 (70-99(Fasting)) mg/dl Calcium 8.8 9.4 (8.6-10.3) mg/dl Phosphorus 3.9 (2.5-4.9) mg/dl Magnesium 2.3 (1.7-2.4) mg/dl Random Vancomycin 16.0 17.4 (10-20) mcg/ml Diagnostic Findings no new data PG Care Time/CCT Total # of Minutes Spent Total Time Spent with Patient: Total time spent is greater than 50% in coordination of care (as documented) at patient's floor/unit and/or counseling patient: I spent 160 minutes overall addressing this case: 45 min in medical data review/discussion with referring provider(s) and/or preparation for the visit OSH teams/phone calls, d/w primary team, transfer center, admitting teams,pharmacy, women's garment fitter/TPN teams 25 min in direct interaction with the patient/exam 60 min in Advance Care Planning/Goals of Care discussions as detailed above in note (must be >16min) 15 min in subsequent review and synthesis of assessment and plan 15 min communicating with other providers regarding the patient's case: nursing, pharmacy, primary team Prolonged Care Time Prolonged Care Time: Yes Total Prolonged Care Time: 20 Advanced Care Planning 70208 Advanced Care Planning 30 Min 87364 Advanced Care Planning Additional 30 [place] [address] IN/OBS CONSULT LVL 5,80M (25 - SIGNIFICANT, SEPARATELY IDENTIFIABLE ) Patient Type New Medical Decision Making High Complexity Diagnoses Dyspnea and respiratory abnormalities R06.00; R06.89 Abdominal pain, acute, generalized R10.84 Weakness generalized R53.1 Anxiety disorder due to medical condition F06.4 Advanced care planning/counseling discussion Z71.89 Encounter for end of life care Z51.5 Palliative care by specialist Z51.5 Colon cancer metastasized to intra-abdominal lymph node C18.9; C77.2 Additional Codes Advanced Care Planning - 64797 Advanced Care Planning 30 Min: 01214 Advanced Care Planning 30 Min ([id number]) Advanced Care Planning - 34349 Advanced Care Planning Additional 30 Min: 95092 Advanced Care Planning Additional 30 Min ([id number]) Prolonged Care Time - Prolonged Care Time: Yes ([id number]) Time Spent (min) 160 Comment [id number], [id number]
--- NOTE | 2024-04-21 09:14 | Hospitalist Progress Note ---
Date of Service April 21, 2024 Assessment & Plan (1) Palliative care by specialist: (2) Encounter for end of life care: (3) Colon cancer metastasized to intra-abdominal lymph node: (4) Dyspnea and respiratory abnormalities: (5) Abdominal pain, acute, generalized: Plan (1) Metastatic Colon cancer: - metastatic colon cancer, s/p subtotal colectomy w/ bowel leak Goals of care: Admitting hospitalist reviewed goals with pt on admission. She reports that he r goal now that she is back home is to transition to comfort care measures. Her most important values to see friends and family. Does not wish for hospice at home as she would like her do not have to fill the role of caregiver. She does wish to be comfort measure at time of admission to the hospital. currently comfortable with no new needs. continue comfort care; anticipate she will likely pass fairly quickly given her large disease burden and overall frail state. continue current care for now Metastatic colon carcinoma s/p subtotal colectomy with bowel leak, now comfort care measures Surgical intervention history: 03/21/2024: Exploratory laparotomy, abdominal washout, subtotal colectomy 03/23/2024: Re X laparotomy, abdominal washout, small bowel resection 03/07/2024: CT-guided peritoneal drain placement 04/07/2024: Cystoscopy, clot evacuation, fulguration, left retrograde pyelogram 04/10/2024: Exploratory laparotomy, washout, repair of enterotomy, abdominal closure with Stratus mesh CHALINO drain and accordion drain remain in place. These are anticipated to be left until end-of-life. Minimal output in drains at time of bedside assessment on arrival to the hospital. No further surgical intervention/revision anticipated Antibiotics continued it is felt these are likely giving her meaningful quality of life improvement. Cefepime 2 g, q12 hours, Flagyl 500 mg, q8 hours, vancomycin 500 mg, q24 hours, Diflucan 400 mg IV, q24 hours - There has been concern for possible bowel leak although drainage has decreased from her CHALINO drain overall May transition wound VAC to wet-to-dry dressing per surgical team at [facility]. Wound care nurse consulted for additional care. IJ thrombosis, continued Lovenox, given that clots can cause discomfort: Lovenox 60 mg, q12 hour for VTE prophylaxis FEN/GI: Patient would like to continue TPN for at least a couple of days while she meets friends and families to maximize her nutrition and alertness. Will continue BMP/Mg/Phos for compounding while this is continued Clears as tolerated. May advance as tolerated per patient for comfort feeding Drain care Right paracolic CHALINO drain , left upper CHALINO paracolic gutter and pelvis, left mid CHALINO to liver fossa, right accordion drain in pelvis Ostomy care Ostomy nurse consulted. Slightly retracted, otherwise intact Admission and Anticipated Discharge Date Admission Date: April 18, 2024 Supervising Physician Co-Signing Physician Notes I personally examined the patient and verified carias points of history and exam, discussed case, and agree with decision making and plan documented by Dr. Schofield. Patient currently on comfort measures and is tolerating Dilaudid for pain. Discussion with palliative care in regards to hospice ongoing. Patient remains on TPN at present. Patient hopeful for a visit from her [facility]. At bedside, patient's and machine iii coremaker were present. Gunner Davis is a 63-year-old female with a recent medical history of metastatic colon cancer with peritoneal carcinomatosis who initially presented to [facility] with a large bowel obstructed and was transferred to [facility] where she underwent subtotal colectomy for perforation with open abdomen taken back for closure 03/21 and placement of end ileostomy and sigmoid mucous fistula on 03/23. She has a complicated history including suspected bile leak, IJ thrombosis, and poor progression with malnutrition. On extensive discussions with her oncologic and surgical teams unfortunately has no further surgical or chemotherapeutic treatment options. After meeting with palliative care did wish for transfer back to [facility] to transition to comfort measures with her highest goal being with friends and family. Patient seen and evaluated today at [facility]. Patient's main concerns today are her dyspnea and tachypnea, diffuse abdominal discomfort, and lower leg edema and discomfort. Patient noted she'd also communicated these concerns to her palliative care doctor. Patient noted that she continued to have a decreased appetite, but was not interested in trying to advance her diet to full liquids from clear liquids. Patient noted that she wanted to continue to be on TPN. Review of Systems Constitutional: + fatigue and + anorexia (decreased appe tite); no fever and no chills Respiratory: + cough (intermittent dry cough) and + d yspnea Cardiovascular: no chest pain and no palpitations Gastrointestinal: + nausea; no abdominal pain, no vomiting , no constipation and no diarrhea/loose stools Genitourinary: + pelvic pain (pelvic area discomfort, 2 /10) Physical Exam Constitutional: WD/WN, vitals as above Respiratory: normal respiratory effort, lungs clear to auscultation Cardiovascular: Rate/Rhythm: regular rate and regular rhythm Extremities: normal capillary refill, + calf tenderness and + pedal edema Gastrointestinal (Abdomen): Percussion/Palpation: + abdomen tender (diffuse abdominal tenderness) Psychiatric: A+Ox3, euthymic affect Resident Activity Tracking Resident Involvement: Resident Care Provided Care Provided: Adult Hospital Medicine
[2024-04-21] MEDS: HYOSCYAMINE SULFATE 0.125 MG TAB SL PRN (12:11)
[2024-04-21] MEDS: HYDROmorphone INJ 0.5 MG/0.5 ML SYR IV PRN (13:08)
[2024-04-21] MEDS: CLINOLIPID 20% IV FAT EMULSION 250 ML IV SCH (17:06)
[2024-04-21] MEDS: [UNRECOGNIZED DRUG - OTHER] IV SCH (17:08)
[2024-04-21] MEDS: CENTRAL TPN IV SCH (17:08)
[2024-04-21 19:40] VITALS: O2SAT 100
--- NOTE | 2024-04-22 07:05 | Hospitalist Progress Note ---
Date of Service April 22, 2024 Assessment & Plan (1) Palliative care by specialist: (2) Encounter for end of life care: (3) Colon cancer metastasized to intra-abdominal lymph node: (4) Dyspnea and respiratory abnormalities: (5) Abdominal pain, acute, generalized: Plan (1) Metastatic Colon cancer: - metastatic colon cancer, s/p subtotal colectomy w/ bowel leak Goals of care: Admitting hospitalist reviewed goals with pt on admission. She reports that he r goal now that she is back home is to transition to comfort care measures. Her most important values to see friends and family. Does not wish for hospice at home as she would like her do not have to fill the role of caregiver. She does wish to be comfort measure at time of admission to the hospital. currently comfortable with no new needs. continue comfort care; anticipate she will likely pass fairly quickly given her large disease burden and overall frail state. continue current care for now Metastatic colon carcinoma s/p subtotal colectomy with bowel leak, now comfort care measures - SCD's to knee ordered to help relieve patient's lymphedema - Albuterol, 2 inh, q6hrs, PRN for dyspnea/air hunger Surgical intervention history: 03/21/2024: Exploratory laparotomy, abdominal washout, subtotal colectomy 03/23/2024: Re X laparotomy, abdominal washout, small bowel resection 03/07/2024: CT-guided peritoneal drain placement 04/07/2024: Cystoscopy, clot evacuation, fulguration, left retrograde pyelogram 04/10/2024: Exploratory laparotomy, washout, repair of enterotomy, abdominal closure with Stratus mesh CHALINO drain and accordion drain remain in place. These are anticipated to be left until end-of-life. Minimal output in drains at time of bedside assessment on arrival to the hospital. No further surgical intervention/revision anticipated Antibiotics continued it is felt these are likely giving her meaningful quality of life improvement. Cefepime 2 g, q12 hours, Flagyl 500 mg, q8 hours, vancomycin 500 mg, q24 hours, Diflucan 400 mg IV, q24 hours - There has been concern for possible bowel leak although drainage has decreased from her CHALINO drain overall May transition wound VAC to wet-to-dry dressing per surgical team at [facility]. W ound care nurse consulted for additional care. IJ thrombosis, continued Lovenox, given that clots can cause discomfort: Lovenox 60 mg, q12 hour for VTE prophylaxis FEN/GI: Patient would like to continue TPN for at least a couple of days while she meets friends and families to maximize her nutrition and alertness. Will continue BMP/Mg/Phos for compounding while this is continued Clears as tolerated. May advance as tolerated per patient for comfort feeding Drain care Right paracolic CHALINO drain , left upper CHALINO paracolic gutter and pelvis, left mid CHALINO to liver fossa, right accordion drain in pelvis Ostomy care Ostomy nurse consulted. Slightly retracted, otherwise intact - Wound care consulted, recommendations appreciated Admission and Anticipated Discharge Date Admission Date: April 18, 2024 Supervising Physician Co-Signing Physician Notes I personally examined the patient and verified carias points of history and exam, discussed case, and agree with decision making and plan documented by Dr. Schofield. Patient currently on comfort measures and is tolerating Dilaudid for pain. Discussion with palliative care in regards to hospice ongoing. Patient remains on TPN at present. Patient hopeful for a visit from her [facility] tomorrow. At bedside, patient's and visitor present. Gunner Davis is a 63-year-old female with a recent medical history of metastatic colon cancer with peritoneal carcinomatosis who initially presented to [facility] with a large bowel obstructed and was transferred to [facility] where she underwent subtotal colectomy for perforation with open abdomen taken back for closure 03/21 and placement of end ileostomy and sigmoid mucous fistula on 03/23. She has a complicated history including suspected bile leak, IJ thrombosis, and poor progression with malnutrition. On extensive discussions with her oncologic and surgical teams unfortunately has no further surgical or chemotherapeutic treatment options. After meeting with palliative care did wish for transfer back to [facility] to transition to comfort measures with her highest goal being with friends and family. Patient seen and evaluated today at beside. Patient's main concerns today are her dyspnea and tachypnea, diffuse pelvic discomfort, and lower leg edema and discomfort. Patient noted she'd also communicated these concerns to her palliative care doctor. Patient noted that she continued to have a decreased appetite, still not interested in trying to advance her diet to full liquids from clear liquids. Patient reiterated that she wanted to continue TPN to be 'alert' during visiting hours. Last night patient expressed some concerns about possible dehiscence of her wound surrounding her drain, and a wound nurse consult was placed. Patient expressed interest in using SCD's to help manage her lymphedema and stated that that was what was done down in [place]. Patient also expressed interest in receiving an inhaler to see if it could help with her dyspnea/tachypnea/air hunger. Review of Systems Constitutional: + fatigue and + anorexia (decreased appe tite); no fever and no chills Respiratory: + cough (intermittent dry cough) and + d yspnea Cardiovascular: no chest pain and no palpitations Gastrointestinal: + nausea; no vomiting, no constipation a nd no diarrhea/loose stools Genitourinary: + pelvic pain (pelvic area discomfort, 2 /10) Physical Exam Constitutional: WD/WN, vitals as above Respiratory: normal respiratory effort, lungs clear to auscultation Cardiovascular: Rate/Rhythm: regular rate and regular rhythm Extremities: normal capillary refill, + calf tenderness and + pedal edema Gastrointestinal (Abdomen): Percussion/Palpation: + abdomen tender (diffuse lower abdominal tenderness) Psychiatric: A+Ox3, euthymic affect Results & Data Results & Data Vital Signs (Past 12 Hours) Vital Signs Temp Pulse Resp BP Pulse Ox O2 Del Method 04/21/24 19:39 36.3 C L 87 18 151/80 H 100 Room Air 04/21/24 19:30 Room Air Resident Activity Tracking Resident Involvement: Resident Care Provided Care Provided: Adult Hospital Medicine
[2024-04-22] MEDS ORDERED: HYOSCYAMINE SULFATE 0.125 MG TAB SL PRN (12:10)
--- NOTE | 2024-04-22 12:22 | Palliative Care Progress Note ---
Date of Service April 22, 2024 Assessment & Plan (1) Cancer related pain: (2) Dyspnea and respiratory abnormalities: (3) Nausea: (4) Weakness generalized: (5) Anxiety disorder due to medical condition: (6) Advanced care planning/counseling discussion: (7) Encounter for end of life care: (8) Suprapubic pain: (9) Palliative care by specialist: Plan No changes today watching renal function legacy work started: birthday card/goodbye letter to written. Thank you for allowing us to participate in the ongoing care of this patient. Please page with any additional concerns. Mitul Lao DNP Director, Palliative Medicine Admission and Anticipated Discharge Date Admission Date: April 18, 2024 Subjective Susan is resting in bed, was out of bed for lunch and dinner yesterday, which she tolerated well. She had increased wound drainage / ostomy output last night Remains on TPN Continues with Abtx Had some pelvic pain and responded well to low dose IV Dilaudid, nausea is persisting and friends are supposed to come visit this afternoon, she is anxious to see them Her is going to work on bringing the cat to visit, she is asking to see her pet Review of Systems Review of Systems: All systems reviewed & are unremarkable except as noted in Subjective Physical Exam Constitutional: + ill appearing, + cachectic, + frail ap pearing, cooperative, + in distress, + diaphoretic and + malnourished Bitemp wasting Eyes: PERRL, conjunctivae normal, anicteric sclerae ENMT: Ears: no hearing impairment Mouth: + dry oral mucous membranes; no dentition abnormality and dentition not poor Throat: uvula midline Neck: trachea midline, no thyromegaly Respiratory: + labored breathing, + uses accessory mu scles, + pursed lip breathing and symmetric chest movement; + not able to speak in complete sentence Auscultation: + diminished lung sounds Cardiovascular: Rate/Rhythm: regular rate and regular rhythm Gastrointestinal (Abdomen): softly distended, TTP generalized midline wound w/dressing +retracted ostomy, mucous fistula with t an/?purulent output, right mid abd CHALINO drain (right paracolic gutter into pelvis), left upper CHALINO drain (in left paracolic gutter into pelvis), left mid abd drain (in the liver fossa), right drain Musculoskeletal: gen weakness BLE 2-3+ edema Skin: + turgor decreased, + dry skin, + pallor and + hair thinning Neurologic: AAOx3 Psychiatric: Eye Contact: good eye contact Speech: normal rate/rhythm/volume of speech Affect: + anxious affect and + tearful affect Thought Process: goal directed thought process, linear/logical thought process and clear/coherent thought process Thought Content: reality based without delusions Cognition: recent memory grossly intact, remote memory grossly intact, attention grossly intact and language grossly intact Estimated Intelligence: + above average estimated intelligence Insight: excellent insight Judgment: excellent judgement Results & Data Vital Signs (Past 12 Hours) Intake & Output 04/20/24 04/21/24 04/22/24 04/23/24 06:59 06:59 06:59 06:59 Intake Total 1647 / 1647 1673.167 / 5341.617 7388 Output Total 1595 / 1595 1925 / 1925 870 / 870 Balance 52 / 52 -251.833 / -332.794 4790.96 / 1149.96 Weight 74 kg 74 kg Laboratory Results 04/20/24 04/19/24 Range/Units 05:31 05:31 Sodium 136 137 (136-145) mmol/L Potassium 3.6 4.0 (3.5-5.1) mmol/L Chloride 104 103 (98-107) mmol/L Carbon Dioxide 25 28 (21-32) mmol/L Anion Gap 7 6 (3-11) BUN 93 H 92 H (6-23) mg/dl Creatinine 1.64 H 1.49 H (0.6-1.2) mg/dl Est Cr Clr Drug Dosing 35.2 38.7 ml/min eGFR 34.53 38.74 BUN/Creatinine Ratio 56.7 H 61.7 H (10-20) Glucose 117 H 81 (70-99(Fasting)) mg/dl Calcium 8.8 9.4 (8.6-10.3) mg/dl Phosphorus 3.9 (2.5-4.9) mg/dl Magnesium 2.3 (1.7-2.4) mg/dl Random Vancomycin 16.0 17.4 (10-20) mcg/ml PG Care Time/CCT Total # of Minutes Spent Total Time Spent with Patient: Total time spent is greater than 50% in coordination of care (as documented) at patient's floor/unit and/or counseling patient: I spent 85 minutes overall addressing this case: 15 min in medical data review/discussion with referring provider(s) and/or preparation for the visit - primary team, pharmacy, nursing 25 min in direct interaction with the patient/exam 20 min in Advance Care Planning/Goals of Care discussions as detailed above in note (must be >16min) 10 min in subsequent review and synthesis of assessment and plan 15 min communicating with other providers regarding the patient's case: nursing, pharmacy, primary team Prolonged Care Time Prolonged Care Time: Yes Total Prolonged Care Time: 15 [place] [address] SUB INP/OBS CARE 3/50MIN Patient Type Established History Comprehensive Exam Comprehensive Medical Decision Making High Complexity Diagnoses Cancer related pain G89.3 Dyspnea and respiratory abnormalities R06.00; R06.89 Nausea R11.0 Weakness generalized R53.1 Anxiety disorder due to medical condition F06.4 Advanced care planning/counseling discussion Z71.89 Encounter for end of life care Z51.5 Suprapubic pain R10.2 Palliative care by specialist Z51.5 Additional Codes Prolonged Care Time - Prolonged Care Time: Yes ([id number])
[2024-04-22] MEDS: PALONOSETRON 0.25 MG in SYRINGE 0 ML IV SCH (12:27)
[2024-04-22] MEDS: CENTRAL TPN IV SCH (16:06)
[2024-04-22] MEDS: CLINOLIPID 20% IV FAT EMULSION 250 ML IV SCH (16:06)
[2024-04-22] MEDS: [UNRECOGNIZED DRUG - OTHER] IV SCH (16:06)
[2024-04-23] MEDS ORDERED: ALBUTEROL HFA 8 GM INHALER INH PRN (00:42)
[2024-04-23] MEDS ORDERED: ALBUTEROL HFA 8 GM INHALER INH SCH ×2 (01:00)
[2024-04-23 06:33] LABS: Anion Gap 10 (3-11); BUN Creatinine Ratio 44.6 (10-20); Blood Urea Nitrogen 120 mg/dl (6-23); Calcium 8.3 mg/dl (8.6-10.3); Carbon Dioxide 16 mmol/L (21-32); Chloride 108 mmol/L (98-107); Creatinine Clr Calc Pharmacy 21.5 ml/min; Glucose 121 mg/dl (70-99(Fasting)); Magnesium 2.2 mg/dl (1.7-2.4); Phosphorus 5.4 mg/dl (2.5-4.9); Sodium 134 mmol/L (136-145); Triglycerides 356 mg/dl (0-150)
[2024-04-23 07:39] VITALS: BP 134/80; PULSE 80; RESP 20; TEMP 97.9
--- NOTE | 2024-04-23 07:45 | Hospitalist Progress Note ---
Date of Service April 23, 2024 Assessment & Plan (1) Palliative care by specialist: (2) Encounter for end of life care: (3) Colon cancer metastasized to intra-abdominal lymph node: (4) Dyspnea and respiratory abnormalities: (5) Abdominal pain, acute, generalized: Plan Susan is a 63-year-old female with a recent medical history of metastatic colon cancer with peritoneal carcinomatosis who initially presented to [facility] with a large bowel obstructed and was transferred to [facility] where she underwent subtotal colectomy for perforation with open abdomen taken back for closure 03/21 and placement of end ileostomy and sigmoid mucous fistula on 03/23. She has a complicated history including suspected bile leak, IJ thrombosis, and poor progression with malnutrition. On extensive discussions with her oncologic and surgical teams unfortunately has no further surgical or chemotherapeutic treatment options. After meeting with palliative care did wish for transfer back to [facility] to transition to comfort measures with her highest goal being with friends and family. bladimir (1) Metastatic Colon cancer: - metastatic colon cancer, s/p subtotal colectomy w/ bowel leak Goals of care: Admitting hospitalist reviewed goals with pt on admission. She reports that her goal now that she is back home is to transition to comfort care measures. Her most important values to see friends and family. Does not wish for hospice at home as she would like her do not have to fill the role of caregiver. She does wish to be comfort measure at time of admission to the hospital. currently comfortable with no new needs. continue comfort care; anticipate she will likely pass fairly quickly given her large disease burden and overall frail state. continue current care for now (2) Electrolyte abnormalities P, 5.4; Ca, 8.3; HCO3, 16; Na, 134 Metastatic colon carcinoma s/p subtotal colectomy with bowel leak, now comfort care measures - SCD's to knee ordered to help relieve patient's lymphedema - Albuterol, 2 inh, q6hrs, PRN for dyspnea/air hunger - TPN will be continued for now Surgical intervention history: 03/21/2024: Exploratory laparotomy, abdominal washout, subtotal colectomy 03/23/2024: Re X laparotomy, abdominal washout, small bowel resection 03/07/2024: CT-guided peritoneal drain placement 04/07/2024: Cystoscopy, clot evacuation, fulguration, left retrograde pyelogram 04/10/2024: Exploratory laparotomy, washout, repair of enterotomy, abdominal closure with Stratus mesh CHALINO drain and accordion drain remain in place. These are anticipated to be left until end-of-life. Minimal output in drains at time of bedside assessment on arrival to the hospital. No further surgical intervention/revision anticipated Antibiotics continued it is felt these are likely giving her meaningful quality of life improvement. Cefepime 2 g, q12 hours, Flagyl 500 mg, q8 hours, Diflucan 200 mg IV, q24 hours - There has been concern for possible bowel leak although drainage has decreased from her CHALINO drain overall May transition wound VAC to wet-to-dry dressing per surgical team at [facility] Wound care nurse consulted for additional care. IJ thrombosis, continued Lovenox, given that clots can cause discomfort: Lovenox 60 mg, q12 hour for VTE prophylaxis FEN/GI: Patient would like to continue TPN for at least a couple of days while she meets friends and families to maximize her nutrition and alertness. Will continue BMP/Mg/Phos for compounding while this is continued Clears as tolerated. May advance as tolerated per patient for comfort feeding Drain care Right paracolic CHALINO drain , left upper CHALINO paracolic gutter and pelvis, left mid CHALINO to liver fossa, right accordion drain in pelvis Ostomy care Ostomy nurse consulted. Slightly retracted, otherwise intact - Wound care consulted, recommendations appreciated Admission and Anticipated Discharge Date Admission Date: April 18, 2024 Supervising Physician Co-Signing Physician Notes I personally examined the patient and verified carias points of history and exam, discussed case, and agree with decision making and plan documented by Dr. Schofield. Patient currently on comfort measures and is tolerating Dilaudid for pain. Discussion with palliative care in regards to hospice ongoing. Cat Hussain visiting. At bedside, patient's and visitors present. Subjective Patient seen and evaluated today at beside. Patient's main concerns today Patient noted that she continued to have a decreased appetite, but eating her 'Clear Liquids' meals. Last night patient expressed some concerns about possible dehiscence of her wound surrounding her drain, and a wound nurse consult was placed. Patient expressed interest in using SCD's to help manage her lymphedema and stated that that was what was done down in [place]. Patient also expressed interest in receiving an inhaler to see if it could help with her dyspnea/tachypnea/air hunger. Review of Systems Constitutional: + fatigue and + anorexia (decreased appe tite); no fever and no chills Respiratory: + cough (intermittent dry cough) and + d yspnea Cardiovascular: no chest pain and no palpitations Gastrointestinal: + nausea; no vomiting, no constipation a nd no diarrhea/loose stools Genitourinary: + pelvic pain (pelvic area discomfort, 2 /10) Physical Exam Constitutional: WD/WN, vitals as above Respiratory: normal respiratory effort, lungs clear to auscultation Cardiovascular: Rate/Rhythm: regular rate and regular rhythm Extremities: normal capillary refill, + calf tenderness and + pedal edema Gastrointestinal (Abdomen): Percussion/Palpation: + abdomen tender (diffuse lower abdominal tenderness) Psychiatric: A+Ox3, euthymic affect Results & Data Results & Data Vital Signs (Past 12 Hours) Vital Signs Temp Pulse Resp BP Pulse Ox O2 Del Method 04/23/24 07:37 36.6 C 80 20 134/80 100 Room Air
[2024-04-23] MEDS: HYDROmorphone INJ 0.5 MG/0.5 ML SYR IV PRN (10:56)
--- NOTE | 2024-04-23 15:01 | Pharmacy Report ---
Pharmacy PN Follow-up Note - Date of Service April 23, 2024 - Objective Height & Weight (Last Documented) Height 5 ft 6 in Weight 74 kg Diet Order(s) 04/18/24 Dinner Diet Intake & Ouput (24hrs) 04/22/24 04/23/24 04/24/24 06:59 06:59 06:59 Intake Total 2019.96 / 2019.96 1996 440 / 440 Output Total 870 / 870 487 / 487 426 / 426 Balance 1149.96 / 1149.96 1510 / 1510 Selected Laboratory Results 04/23/24 04/23/24 05:31 05:34 Sodium 134 L Potassium 3.6 TNP Chloride 108 H Carbon Dioxide 16 L Anion Gap 10 BUN 120 H Creatinine 2.69 H BUN/Creatinine Ratio 44.6 H Glucose 121 H Calcium 8.3 L Phosphorus 5.4 H Magnesium 2.2 Triglycerides 356 H - Assessment & Plan Assessment: * Patient is to receive parenteral nutrition for comfort needs to maximize alertness while she meets with friends/family * Discussed case with hospitalist and palliative care provider. Will stop advancing towards initial dietary goal given patient does have some PO intake and has had worsening nausea when TPN was increased previously. Possible discontinuation of PN tomorrow. * Labs obtained for this morning and indicate LESLY. Phos elevated and will be removed from today's bag, triglycerides also elevated so will hold lipids. * Pertinent PMHx: * metastatic colon cancer with peritoneal carcinomatosis who initially presents to [facility] with a large bowel obstructed and was transferred to [facility] where she underwent subtotal colectomy for perforation with open abdomen taken back for closure 03/21 and placement of end ileostomy and sigmoid mucous fistula on 03/23. She has a complicated history including suspected bile leak, IJ thrombosis, and poor progression with malnutrition. After meeting with palliative care did wish for transfer back to [facility] to transition to comfort measures with her highest goal being with friends and family. Plan: * For Day #4 of TPN administration, the following will be ordered: * Macronutrients: * Amino Acids: 80 grams/day * Dextrose: 140 grams/day * Micronutrients: * Sodium acetate: 20 mEq/day * Potassium acetate: 20 mEq/day * Multivitamins: 10 mL/day * Trace elements: 1 mL/day * Thiamine: 100 mg/day * Total volume of 1032 mL will be infused over 24 hours and will provide 796 kcal/day * Labs only as necessary. * Pharmacy will follow and adjust PN orders on a daily basis. Thank you.
[2024-04-23] MEDS: AA 8%/D14W 1L 1,032 ML in Central TPN bag 0 ML IV SCH (16:01)
[2024-04-23] MEDS: ENOXAPARIN INJ 60 MG/0.6 ML SYR SQ SCH (21:44)
[2024-04-23] MEDS: CEFEPIME 1000MG 1,000 MG/10 ML SYR IV SCH (22:04)
[2024-04-24] MEDS ORDERED: VANCOMYCIN 500 MG in NSS 100mL IV SCH
--- NOTE | 2024-04-24 06:59 | Hospitalist Progress Note ---
Date of Service April 24, 2024 Assessment & Plan (1) Palliative care by specialist: (2) Encounter for end of life care: (3) Colon cancer metastasized to intra-abdominal lymph node: (4) Dyspnea and respiratory abnormalities: (5) Abdominal pain, acute, generalized: Plan Susan is a 63-year-old female with a recent medical history of metastatic colon cancer with peritoneal carcinomatosis who initially presented to [facility] with a large bowel obstructed and was transferred to [facility] where she underwent subtotal colectomy for perforation with open abdomen taken back for closure 03/21 and placement of end ileostomy and sigmoid mucous fistula on 03/23. She has a complicated history including suspected bile leak, IJ thrombosis, and poor progression with malnutrition. On extensive discussions with her oncologic and surgical teams unfortunately has no further surgical or chemotherapeutic treatment options. After meeting with palliative care did wish for transfer back to [facility] to transition to comfort measures with her highest goal being with friends and family. Continuation of comfort care today. Pt to get us or palliative know if any medications changes are needed. Metastatic Colon cancer: - metastatic colon cancer, s/p subtotal colectomy w/ bowel leak Goals of care: Admitting hospitalist reviewed goals with pt on admission. She reports that her goal now that she is back home is to transition to comfort care measures. Her most important values to see friends and family. Does not wish for hospice at home as she would like her do not have to fill the role of caregiver. She does wish to be comfort measure at time of admission to the hospital. Continue comfort care; anticipate she will likely pass fairly quickly given her large disease burden and overall frail state. CHALINO drain and accordion drain remain in place. These are anticipated to be left until end-of-life. There has been concern for possible bowel leak although drainage has decreased from her CHALINO drain overall. No further surgical int ervention/revision anticipated Antibiotics continued it is felt these are likely giving her meaningful quality of life improvement. Cefepime 2 g, q12 hours, Flagyl 500 mg, q8 hours, Diflucan 200 mg IV, q24 hours - IJ thrombosis, continued Lovenox, given that clots can cause discomfort: Lovenox 60 mg, q12 hour FEN/GI: Patient would like to continue TPN for at least a couple of days while she meets friends and families to maximize her nutrition and alertness. Clears as tolerated. May advance as tolerated per patient for comfort feeding; pt essentially may eat whatever she wants Admission and Anticipated Discharge Date Admission Date: April 18, 2024 Supervising Physician Co-Signing Physician Notes I personally examined the patient and verified carias points of history and exam, discussed case, and agree with decision making and plan documented by Dr. Peralta. Patient comfortable, pain controlled. Patient transitioning off TPN, continuing antibiotics at this time. Comfort measures only. Subjective Today, pt states she is feeling okay. She states her breathing does still feel heavy and tiring at times but denies wanting anything for this. She does also note some lower abdominal discomfort but does not want anything for this at this time. She states otherwise she is feeling okay today, essentially no different from yesterday. Denies any further needs right now. Review of Systems Review of Systems: As per above Physical Exam Physical Exam: General:Alert and oriented, frail appearing with mildly increased resp effort HEENT: Normocephalic, moist oral mucosa, Cardio: Regular rate and rhythm, Resp:Lungs clear to auscultation b/l, no wheezes or rhonchi, GI: Soft and nontender, Skin: Warm, pink, dry, Resident Activity Tracking Resident Involvement: Resident Care Provided Care Provided: Adult Hospital Medicine
[2024-04-24] MEDS: AA 8%/D14W 1L 1,032 ML in Central TPN bag 0 ML IV SCH (16:26)
[2024-04-24] MEDS: HYDROmorphone INJ 0.5 MG/0.5 ML SYR IV PRN (17:53)
--- NOTE | 2024-04-24 20:13 | Palliative Care Progress Note ---
Date of Service April 23, 2024 Assessment & Plan (1) Cancer related pain: (2) Dyspnea and respiratory abnormalities: (3) Nausea: (4) Weakness generalized: (5) Anxiety disorder due to medical condition: (6) Advanced care planning/counseling discussion: Plan: 50min ACP meeting held with pt, and her best friend Sunni renal function and changes to TPN reviewed. Advised if this worsens, it would be time to stop TPN, which she recalls from prior d/w PSH team as well. She tells me she is growing weary.She apologizes to her and friend "I'm sorry, I just can't fight this anymore.I'm so tired. It's too hard." extensive support and reassurance provided. Family repeatedly reassured Susan there is no blame or guilt needed, they are wholly supportive of her choices and want only the best comfort and peace for her. I was able to complete the [employer] legacy project with Ashutosh Davis and Hussain the cat. Susan dictated several letters to me that i will be writing out and sending along to her friends. Ashutosh confirmed addresses for all parties. Photos were taken for them of Susan with Hussain. These were shared with Susan, Ashutosh and family as they requested. She wants people to see/know she was happy and surrounded by the ones she loves most at this final stage. (7) Encounter for end of life care: (8) Suprapubic pain: (9) Palliative care by specialist: Plan No changes today watching renal function - phos removed from TPN legacy work continued, [employer] frame completed, letters to family/friends dictated Thank you for allowing us to participate in the ongoing care of this patient. Please page with any additional concerns. Mitul Lao DNP Director, Palliative Medicine Admission and Anticipated Discharge Date Admission Date: April 18, 2024 Subjective Susan is growing more tired and states "I don't want to keep feeling like this, I don't want to fight anymore." She remains on TPN but renal function is worsening, we will remove the phos She is having worsening BLE edema and higher outputs nausea unchanged, maybe a little better with aloxi tolerating clear liquids but finds she sill prefers water and tamazight ices Her best friend Sunni is here from [place] and is able to bring in Moemily her cat who is 21 yr old. Susan is extremely happy to have this visit with her cat, notes that she has never been apart from his this long and he is her favorite pet. She has been able to enjoy visits from numerous friends and family over the past few days. She has been speaking with her brother but notes it is hard to talk continuously for a long time and she tires easily. She asks me to help her write some goodbye letters to a few friends, her brother and a forme mentor. Review of Systems Review of Systems: All systems reviewed & are unremarkable except as noted in Subjective Physical Exam Constitutional: + ill appearing, + cachectic, + frail ap pearing, cooperative, + in distress, + diaphoretic and + malnourished Bitemp wasting Eyes: PERRL, conjunctivae normal, anicteric sclerae ENMT: Ears: no hearing impairment Mouth: + dry oral mucous membranes; no dentition abnormality and dentition not poor Throat: uvula midline Neck: trachea midline, no thyromegaly Respiratory: + labored breathing, + uses accessory mu scles, + pursed lip breathing and symmetric chest movement; + not able to speak in complete sentence Auscultation: + diminished lung sounds Cardiovascular: Rate/Rhythm: regular rate and regular rhythm Gastrointestinal (Abdomen): softly distended, TTP generalized midline wound w/dressing +retracted ostomy, mucous fistula with t an/?purulent output, right mid abd CHALINO drain (right paracolic gutter into pelvis), left upper CHALINO drain (in left paracolic gutter into pelvis), left mid abd drain (in the liver fossa), right drain Musculoskeletal: gen weakness BLE 2-3+ edema Skin: + turgor decreased, + dry skin, + pallor and + hair thinning Neurologic: AAOx3 Psychiatric: Eye Contact: good eye contact Speech: normal rate/rhythm/volume of speech Affect: + anxious affect and + tearful affect Thought Process: goal directed thought process, linear/logical thought process and clear/coherent thought process Thought Content: reality based without delusions Cognition: recent memory grossly intact, remote memory grossly intact, attention grossly intact and language grossly intact Estimated Intelligence: + above average estimated intelligence Insight: excellent insight Judgment: excellent judgement Results & Data Vital Signs (Past 12 Hours) Vital Signs Temp 36.6 C 02/19/25 07:37 Pulse 80 04/23/24 07:37 Resp 20 04/23/24 07:37 BP 134/80 04/23/24 07:37 Pulse Ox 100 04/23/24 07:37 O2 Del Method Room Air 04/23/24 07:37 Intake & Output 04/24/24 04/24/24 04/25/24 06:59 18:59 06:59 Intake Total 200 / 1777 1232 / 1232 Output Total 540 / 966 Balance -340 / 811 1232 / 1232 Weight 74 kg Intake: IV 200 / 1437 1232 / 1232 Aa 8%/D14w 1L 1,032 ml In 1032 / 1032 Central TPN bag 0 ml @ 43 mls/ hr IV .Q24H LIZZ Rx#:[id number] Clinolipid 20% IV Fat Emulsion 0 / 0 250 ml @ 41.6 mls/hr IV .Q6H1M LIZZ Rx#:[id number] Fluconazole 200 mg In 100 ml @ 100 / 100 100 mls/hr IV Q24H LIZZ Rx#: [id number] metroNIDAZOLE 500 mg In 100 ml 200 / 300 100 / 100 @ 100 mls/hr IV Q8H LIZZ Rx#: [id number] Output: Urine Amount (Catheter) 450 / 700 Dumont/Indwelling 450 / 700 Drain Output 90 / 190 Right CHALINO #3 90 / 190 Laboratory Results Most recent lab results Calcium 8.3 mg/dl (8.6-10.3) L 04/23/24 05:34 Phosphorus 5.4 mg/dl (2.5-4.9) H 04/23/24 05:34 Magnesium 2.2 mg/dl (1.7-2.4) 04/23/24 05:34 PG Care Time/CCT Total # of Minutes Spent Total Time Spent with Patient: Total time spent is greater than 50% in coordination of care (as documented) at patient's floor/unit and/or counseling patient: I spent 105 minutes overall addressing this case: 10 min in medical data review/discussion with referring provider(s) and/or preparation for the visit 20 min in direct interaction with the patient/exam 50 min in Advance Care Planning/Goals of Care discussions as detailed above in note (must be >16min) 10 min in subsequent review and synthesis of assessment and plan 15 min communicating with other providers regarding the patient's case: nursing, primary team, pharmacy Advanced Care Planning 51087 Advanced Care Planning 30 Min 29260 Advanced Care Planning Additional 30 Min [place] [address] SUB INP/OBS CARE 3/50MIN (25 - SIGNIFICANT, SEPARATELY IDENTIFIABLE ) Patient Type Established Medical Decision Making High Complexity Diagnoses Cancer related pain G89.3 Dyspnea and respiratory abnormalities R06.00; R06.89 Nausea R11.0 Weakness generalized R53.1 Anxiety disorder due to medical condition F06.4 Advanced care planning/counseling discussion Z71.89 Encounter for end of life care Z51.5 Suprapubic pain R10.2 Palliative care by specialist Z51.5 Additional Codes Advanced Care Planning - 78491 Advanced Care Planning 30 Min: 67534 Advanced Care Planning 30 Min ([id number]) Advanced Care Planning - 65505 Advanced Care Planning Additional 30 Min: 17116 Advanced Care Planning Additional 30 Min ([id number])
--- NOTE | 2024-04-24 20:45 | Palliative Care Progress Note ---
Date of Service April 24, 2024 Assessment & Plan (1) Cancer related pain: (2) Dyspnea and respiratory abnormalities: (3) Nausea: (4) Weakness generalized: (5) Anxiety disorder due to medical condition: (6) Advanced care planning/counseling discussion: Plan: 60 min face to face with Susan and , Chung at bedside. We discussed the reality of her terminal cancer diagnosis and the upcoming phase of her journey. v We focused on honoring Kamryn life, acknowledging her strength, resilience, and the kindness she has shared throughout her years. I shared that Kamryn legacy of compassion, love, and connection will always be remembered by those who have had the privilege of knowing her, and how these qualities will continue to live on in the hearts of family, friends, and even in the lives of those she may have touched in smaller, quieter ways. She has been seeing her juice tester from [employer] regularly and this has been a great comfort. She denies any unresolved concerns or worries. Susan and Chung asked about the dying process: discussed changes pt may move through in the dying process including but not limited to sleeping more, disorientation when awake, restlessness, diminished senses/inability to respond to stimulus although ability to be aware of them remains intact longer, changes in body temperatures, skin changes/mottling/cyanosis, respiratory pattern changes, oral secretions. Family verbalized understanding. The goal is to assure a peaceful . We gently reviewed the end-of-life process, including how the body naturally begins to slow down and the comfort measures that will be provided to ensure that Kamryn dignity and comfort are maintained at all times. We discussed the importance of pain management, emotional support, and the role of palliative care, which focuses on making her as comfortable as possible. I emphasized that our goal, now and always, is to care for Susan with kindness, providing emotional and physical support to her and her family, and to honor her wishes and comfort through every step of this transition. Together, we acknowledged that the care we provide is ultimately rooted in love love for Susan as a person, for the relationships she has nurtured, and for the journey she has ahead. I reassured Chung that he will never be alone in this process, and we will be here to walk alongside both of them, offering support, comfort, and reassurance through every moment. The care we provide will always be compassionate, respectful, and focused on Kamryn needs and her well-being, as we help her through this final chapter with as much peace and love as possible. (7) Encounter for end of life care: (8) Suprapubic pain: (9) Palliative care by specialist: Plan Move to [employer]RNA[employer] PROF[employer] TPN stopped Orders written for now will continue ABtx as they are adding to her comfort given the underlying issues. When she becomes lethargic/unresponsive, please d/c abtx I am out of office tomorrow, 04/25 and pall med will be covered by my colleague Eileen Talbot, please page for all symptoms mgt/EOL mgt needs Thank you for allowing us to participate in the ongoing care of this patient. Please page with any additional concerns. Mitul Lao DNP Director, Palliative Medicine Admission and Anticipated Discharge Date Admission Date: April 18, 2024 Subjective Susan is growing weaker increasing resp distress decreasing energy more tired, napping remains alert with family/friends but notes she sometimes feels foggy she and chung addressed/finalized their financial planning today w/their advisor - she feels more at peace now appetite declining , now few sips fo water SCDs placed yesterday for BLE edema, she feels they are ok, maybe helping , doesn't mind them for now BUE edema L>R persists renal function and electrolyte derangement worsening Review of Systems Review of Systems: All systems reviewed & are unremarkable except as noted in Subjective Physical Exam Constitutional: + ill appearing, + cachectic, + frail ap pearing, cooperative, + in distress, + diaphoretic and + malnourished Bitemp wasting Eyes: PERRL, conjunctivae normal, anicteric sclerae ENMT: Ears: no hearing impairment Mouth: + dry oral mucous membranes; no dentition abnormality and dentition not poor Throat: uvula midline Neck: trachea midline, no thyromegaly Respiratory: + labored breathing, + uses accessory mu scles and symmetric chest movement; + not able to speak in complete sentence Auscultation: + diminished lung sounds Cardiovascular: Rate/Rhythm: regular rate and regular rhythm Gastrointestinal (Abdomen): softly distended, TTP generalized midline wound w/dressing +retracted ostomy, mucous fistula with t an/?purulent output, right mid abd CHALINO drain (right paracolic gutter into pelvis), left upper CHALINO drain (in left paracolic gutter into pelvis), left mid abd drain (in the liver fossa), right drain Musculoskeletal: gen weakness BLE 2-3+ edema Skin: + turgor decreased, + dry skin, + pallor and + hair thinning Neurologic: AAOx3 Psychiatric: Eye Contact: good eye contact Speech: normal rate/rhythm/volume of speech Affect: + anxious affect and + tearful affect Thought Process: goal directed thought process, linear/logical thought process and clear/coherent thought process Thought Content: reality based without delusions Cognition: recent memory grossly intact, remote memory grossly intact, attention grossly intact and language grossly intact Estimated Intel ligence: + above average estimated intelligence Insight: excellent insight Judgment: excellent judgement Results & Data Vital Signs (Past 12 Hours) Vital Signs Temp 36.6 C 04/23/24 07:37 Pulse 80 04/23/24 07:37 Resp 20 04/23/24 07:37 BP 134/80 04/23/24 07:37 Pulse Ox 100 04/23/24 07:37 O2 Del Method Room Air 04/23/24 07:37 Intake & Output 04/24/24 04/24/24 04/25/24 06:59 18:59 06:59 Intake Total 200 / 1777 1232 / 1232 Output Total 540 / 966 Balance -340 / 811 1232 / 1232 Weight 74 kg Intake: IV 200 / 1437 1232 / 1232 Aa 8%/D14w 1L 1,032 ml In 1032 / 1032 Central TPN bag 0 ml @ 43 mls/ hr IV .Q24H LIZZ Rx#:[id number] Clinolipid 20% IV Fat Emulsion 0 / 0 250 ml @ 41.6 mls/hr IV .Q6H1M LIZZ Rx#:[id number] Fluconazole 200 mg In 100 ml @ 100 / 100 100 mls/hr IV Q24H LIZZ Rx#: [id number] metroNIDAZOLE 500 mg In 100 ml 200 / 300 100 / 100 @ 100 mls/hr IV Q8H LIZZ Rx#: [id number] Output: Urine Amount (Catheter) 450 / 700 Dumont/Indwelling 450 / 700 Drain Output 90 / 190 Right CHALINO #3 90 / 190 Laboratory Results Most recent lab results Calcium 8.3 mg/dl (8.6-10.3) L 04/23/24 05:34 Phosphorus 5.4 mg/dl (2.5-4.9) H 04/23/24 05:34 Magnesium 2.2 mg/dl (1.7-2.4) 04/23/24 05:34 04/23/24 04/23/24 04/20/24 Range/Units 05:34 05:31 05:31 Sodium 134 L 136 (136-145) mmol/L Potassium TNP 3.6 3.6 (3.5-5.1) mmol/L Chloride 108 H 104 (98-107) mmol/L Carbon Dioxide 16 L 25 (21-32) mmol/L Anion Gap 10 7 (3-11) BUN 120 H 93 H (6-23) mg/dl Creatinine 2.69 H 1.64 H (0.6-1.2) mg/dl Est Cr Clr Drug Dosing 21.5 35.2 ml/min eGFR 19.07 34.53 BUN/Creatinine Ratio 44.6 H 56.7 H (10-20) Glucose 121 H 117 H (70-99(Fasting)) mg/dl Calcium 8.3 L 8.8 (8.6-10.3) mg/dl Phosphorus 5.4 H (2.5-4.9) mg/dl Magnesium 2.2 (1.7-2.4) mg/dl Triglycerides 356 H (0-150) mg/dl Random Vancomycin 22.1 H 16.0 (10-20) mcg/ml 04/19/24 Range/Units 05:31 Sodium 137 (136-145) mmol/L Potassium 4.0 (3.5-5.1) mmol/L Chloride 103 (98-107) mmol/L Carbon Dioxide 28 (21-32) mmol/L Anion Gap 6 (3-11) BUN 92 H (6-23) mg/dl Creatinine 1.49 H (0.6-1.2) mg/dl Est Cr Clr Drug Dosing 38.7 ml/min eGFR 38.74 BUN/Creatinine Ratio 61.7 H (10-20) Glucose 81 (70-99(Fasting)) mg/dl Calcium 9.4 (8.6-10.3) mg/dl Phosphorus 3.9 (2.5-4.9) mg/dl Magnesium 2.3 (1.7-2.4) mg/dl Triglycerides (0-150) mg/dl Random Vancomycin 17.4 (10-20) mcg/ml PG Care Time/CCT Total # of Minutes Spent Total Time Spent with Patient: Total time spent is greater than 50% in coordination of care (as documented) at patient's floor/unit and/or counseling patient: I spent 120 minutes overall addressing this case: 20 min in medical data review/discussion with referring provider(s) and/or preparation for the visit d/w pharmacy and nursing 15 min in direct interaction with the patient/exam 60 min in Advance Care Planning/Goals of Care discussions as detailed above in note (must be >16min) 10 min in subsequent review and synthesis of assessment and plan 15 min communicating with other providers regarding the patient's case: nursing, pharmacy, primary team Prolonged Care Time Prolonged Care Time: Yes Total Prolonged Care Time: 10 Advanced Care Planning 93659 Advanced Care Planning 30 Min 47415 Advanced Care Planning Additional 30 Min [place] [address] SUB INP/OBS CARE 3/50MIN (25 - SIGNIFICANT, SEPARATELY IDENTIFIABLE ) Patient Type Established History Comprehensive Exam Comprehensive Medical Decision Making High Complexity Diagnoses Cancer related pain G89.3 Dyspnea and respiratory abnormalities R06.00; R06.89 Nausea R11.0 Weakness generalized R53.1 Anxiety disorder due to medical condition F06.4 Advanced care planning/counseling discussion Z71.89 Encounter for end of life care Z51.5 Suprapubic pain R10.2 Palliative care by specialist Z51.5 Additional Codes Advanced Care Planning - 19160 Advanced Care Planning 30 Min: 45689 Advanced Care Planning 30 Min ([id number]) Advanced Care Planning - 21905 Advanced Care Planning Additional 30 Min: 76642 Advanced Care Planning Additional 30 Min ([id number]) Prolonged Care Time - Prolonged Care Time: Yes ([id number])
--- NOTE | 2024-04-25 07:55 | Hospitalist Progress Note ---
Date of Service April 25, 2024 Assessment & Plan (1) Palliative care by specialist: (2) Encounter for end of life care: (3) Colon cancer metastasized to intra-abdominal lymph node: (4) Dyspnea and respiratory abnormalities: (5) Abdominal pain, acute, generalized: Plan Susan is a 63-year-old female with a recent medical history of metastatic colon cancer with peritoneal carcinomatosis who initially presented to [facility] with a large bowel obstructed and [place] [facility] subtotal colectomy for perforation with open abdomen taken back for closure 03/21 and placement of end ileostomy and sigmoid mucous fistula on 03/23. She has a complicated history including suspected bile leak, IJ thrombosis, and poor progression with malnutrition. On extensive discussions with her oncologic and surgical teams unfortunately has no further surgical or chemotherapeutic treatment options. After meeting with palliative care did wish for transfer back to [facility] to transition to comfort measures with her highest goal being with friends and family. Continuation of comfort care today. Metastatic Colon cancer: - metastatic colon cancer, s/p subtotal colectomy w/ bowel leak Goals of care: Admitting hospitalist reviewed goals with pt on admission. She reports that her goal now that she is back home is to transition to comfort care measures. Her most important values to see friends and family. Does not wish for hospice at home as she would like her do not have to fill the role of caregiver. She does wish to be comfort measure at time of admission to the hospital. Continue comfort care; anticipate she will likely pass fairly quickly given her large disease burden and overall frail state. CHALINO drain and accordion drain remain in place. These are anticipated to be left until end-of-life. There has been concern for possible bowel leak although drainage has decreased from her CHALINO drain overall. No further surgical intervention/revision anticipated Antibiotics continued it is felt these are likely giving her meaningful quality of life improvement. Cefepime 2 g, q12 hours, Flagyl 500 mg, q8 hours, Diflucan 200 mg IV, q24 hours - IJ thrombosis, continued Lovenox, given that clots can cause discomfort: Lovenox 60 mg, q12 hour FEN/GI: Patient would like to continue TPN for at least a couple of days while she meets friends and families to maximize her nutrition and alertness. Clears as tolerated. May advance as tolerated per patient for comfort feeding Admission and Anticipated Discharge Date Admission Date: April 18, 2024 Supervising Physician Co-Signing Physician Notes I personally examined the patient and verified carias points of history and exam, discussed case, and agree with decision making and plan documented by the resident. Patient without new complaints this morning. Just after bath/morning ADLs she is fatigued. Pain seems well controlled per her report. Increasing weakness with each day. Palliative consultation appreciated. TPN discontinued. Symptoms controlled at present. Remains on antibiotics at this time. Subjective Patient seen at bedside. No acute events reported overnight. Patient had just finished being cleaned up by nursing staff, states she feels a bit tired but pain control is adequate at this time. Review of Systems Review of Systems: As per HPI Physical Exam Constitutional: No acute distress, resting comfortably Eyes: + anicteric sclerae; no conjunctival abn ormality ENMT: Ears: no external ear abnormality Nose: no external nose abnormality Respiratory: No increased respiratory efforts. Breathing comfortably on room air. Skin: no rashes, warm and dry Psychiatric: A+Ox3, euthymic affect Results & Data Results & Data Vital Signs (Past 12 Hours) Vital Signs O2 Del Method 04/24/24 20:30 Room Air Resident Activity Tracking Resident Involvement: Resident Care Provided Care Provided: Adult Hospital Medicine
[2024-04-25] MEDS: FAMOTIDINE 20MG IV PUSH 20 MG/5 ML SYR IV SCH (09:15)
--- NOTE | 2024-04-26 07:31 | Hospitalist Progress Note ---
Date of Service April 26, 2024 Assessment & Plan (1) Palliative care by specialist: (2) Encounter for end of life care: (3) Colon cancer metastasized to intra-abdominal lymph node: (4) Dyspnea and respiratory abnormalities: (5) Abdominal pain, acute, generalized: Plan Susan is a 63-year-old female with a recent medical history of metastatic colon cancer with peritoneal carcinomatosis who initially presented to [facility] with a large bowel obstructed and was transferred to [facility] where she underwent subtotal colectomy for perforation with open abdomen taken back for closure 03/21 and placement of end ileostomy and sigmoid mucous fistula on 03/23. She has a complicated history including suspected bile leak, IJ thrombosis, and poor progression with malnutrition. On extensive discussions with her oncologic and surgical teams unfortunately has no further surgical or chemotherapeutic treatment options. After meeting with palliative care did wish for transfer back to [facility] to transition to comfort measures with her highest goal being with friends and family. Continuation of comfort care today. Metastatic Colon cancer: - metastatic colon cancer, s/p subtotal colectomy w/ bowel leak Goals of care: Admitting hospitalist reviewed goals with pt on admission. She reports that her goal now that she is back home is to transition to comfort care measures. Her most important values to see friends and family. Does not wish for hospice at home as she would like her do not have to fill the role of caregiver. She does wish to be comfort measure at time of admission to the hospital. Continue comfort care; anticipate she will likely pass fairly quickly given her large disease burden and overall frail state. CHALINO drain and accordion drain remain in place. These are anticipated to be left until end-of-life. There has been concern for possible bowel leak although drainage has decreased from her CHALINO drain overall. No further surgical intervention/revision anticipated Antibiotics continued it is felt these are likely giving her meaningful quality of life improvement. Cefepime 2 g, q12 hours, Flagyl 500 mg, q8 hours, Diflucan 200 mg IV, q24 hours - IJ thrombosis, continued Lovenox, given that clots can cause discomfort: Lovenox 60 mg, q12 hour FEN/GI: TPN discontinued Admission and Anticipated Discharge Date Admission Date: April 18, 2024 Supervising Physician Co-Signing Physician Notes I personally examined the patient and verified carias points of history and exam, discussed case, and agree with decision making and plan documented by the resident. Feeling members at bedside. Patient is sleeping. Nursing providing pain medications based on increased respiratory rate at the time. EXAM 134/80, 80, 20, 36.6, 100% on room air IMPRESSION AND PLAN metastatic colon cancer end-of-life care/comfort measures only Palliative consultation appreciated. TPN discontinued. Symptoms controlled at present. Remains on antibiotics at this time. Subjective Patient sleeping at time of encounter, in no apparent distress and resting comfortably. Review of Systems Review of Systems: As per above Physical Exam Constitutional: Sleeping during encounter. Eyes: + anicteric sclerae; no conjunctival abn ormality ENMT: Ears: no external ear abnormality Nose: no external nose abnormality Respiratory: normal respiratory effort; no respiratory distress Skin: no rashes, warm and dry Psychiatric: A+Ox3, euthymic affect Results & Data Results & Data Vital Signs (Past 12 Hours) Vital Signs O2 Del Method 04/25/24 19:50 Room Air Resident Activity Tracking Resident Involvement: Resident Care Provided Care Provided: Adult Hospital Medicine
--- NOTE | 2024-04-27 07:32 | Hospitalist Progress Note ---
Date of Service April 27, 2024 Assessment & Plan (1) Palliative care by specialist: (2) Cancer related pain: (3) Abdominal pain, acute, generalized: Plan Susan is a 63-year-old female with a recent medical history of metastatic colon cancer with peritoneal carcinomatosis who initially presented to [facility] with a large bowel obstructed and was [place] [facility] [place] underwent subtotal colectomy for perforation with open abdomen taken back for closure 03/21 and placement of end ileostomy and sigmoid mucous fistula on 03/23. She has a complicated history including suspected bile leak, IJ thrombosis, and poor progression with malnutrition. On extensive discussions with her oncologic and surgical teams unfortunately has no further surgical or chemotherapeutic treatment options. After meeting with palliative care did wish for transfer back to [facility] to transition to comfort measures with her highest goal being with friends and family. * Discussed changes in respiratory rate/pattern with family at bedside. Continuing comfort measures. Metastatic Colon cancer: - metastatic colon cancer, s/p subtotal colectomy w/ bowel leak Goals of care: Admitting hospitalist reviewed goals with pt on admission. She reports that h er goal now that she is back home is to transition to comfort care measures. Her most important values to see friends and family. Does not wish for hospice at home as she would like her do not have to fill the role of caregiver. She does wish to be comfort measure at time of admission to the hospital. Continue comfort care; anticipate she will likely pass fairly quickly given her large disease burden and overall frail state. CHALINO drain and accordion drain remain in place. These are anticipated to be left until end-of-life. There has been concern for possible bowel leak although drainage has decreased from her CHALINO drain overall. No further surgical intervention/revision anticipated Antibiotics had been continued to help with quality of life, however after discussion with family again on 04/27 it was decided to discontinue the IV Cefepime, Flagyl, and Diflucan - IJ thrombosis, was on Lovenox- now discontinued FEN/GI: TPN discontinued earlier in the week Clear liquids as tolerated Admission and Anticipated Discharge Date Admission Date: April 18, 2024 Supervising Physician Co-Signing Physician Notes I personally examined the patient and verified carias points of history and exam, discussed case, and agree with decision making and plan documented by the resident. Feeling member at bedside. They report that Susan really has not been awake since early yesterday. EXAM No vital signs being recorded Hyperextension of neck appreciated, ear pinning respirations are irregular and shallow heart rate with variability, auscultated rate 75 IMPRESSION AND PLAN metastatic colon cancer end-of-life care/comfort measures only Palliative consultation appreciated. Discussion with family with regards to anticipatory advice for progression/ end-of-life signs and symptoms Discontinue antibiotics Discontinue SCDs Symptoms appear well controlled with current medications Subjective No overnight events reported. Patient resting at time of initial visit. Upon return, patient's family was at bedside. Patient continues to rest. Family inquires about stopping remainder of IV antibiotics. Review of Systems Review of Systems: As per above Physical Exam Constitutional: Resting comfortably, in no apparent distress. Not responding to verbal stimuli. Eyes: + anicteric sclerae; no conjunctival abn ormality ENMT: Ears: no external ear abnormality Nose: no external nose abnormality Respiratory: Increased respiratory efforts, respiratory rate is somewhat irregular Skin: no rashes, warm and dry Results & Data Results & Data Vital Signs (Past 12 Hours) Vital Signs O2 Del Method 04/26/24 21:30 Room Air Resident Activity Tracking Resident Involvement: Resident Care Provided Care Provided: Adult Hospital Medicine
[2024-04-27] MEDS: HYDROmorphone INJ 0.5 MG/0.5 ML SYR IV PRN (07:47)
--- NOTE | 2024-04-28 06:57 | Hospitalist Progress Note ---
Date of Service April 28, 2024 Assessment & Plan (1) Palliative care by specialist: (2) Cancer related pain: (3) Abdominal pain, acute, generalized: Plan Susan is a 63-year-old female with a recent medical history of metastatic colon cancer with peritoneal carcinomatosis who initially presented to [facility] with a large bowel obstructed and was transferred to [facility] [place] where she underwent subtotal colectomy for perforation with open abdomen taken back for closure 03/21 and placement of end ileostomy and sigmoid mucous fistula on 03/23. She has a complicated history including suspected bile leak, IJ thrombosis, and poor progression with malnutrition. On extensive discussions with her oncologic and surgical teams unfortunately has no further surgical or chemotherapeutic treatment options. After meeting with palliative care did wish for transfer back to [facility] to transition to comfort measures with her highest goal being with friends and family. * Discussed changes in respiratory rate/pattern with family at bedside. Continuing comfort measures. Metastatic Colon cancer: - metastatic colon cancer, s/p subtotal colectomy w/ bowel leak Goals of care: Admitting hospitalist reviewed goals with pt on admission. She reports that h er goal now that she is back home is to transition to comfort care measures. Her most important values to see friends and family. Does not wish for hospice at home as she would like her do not have to fill the role of caregiver. She does wish to be comfort measure at time of admission to the hospital. Continue comfort care; anticipate she will likely pass fairly quickly given her large disease burden and overall frail state. CHALINO drain and accordion drain remain in place. These are anticipated to be left until end-of-life. There has been concern for possible bowel leak although drainage has decreased from her CHALINO drain overall. No further surgical intervention/revision anticipated Antibiotics had been continued to help with quality of life, however after discussion with family again on 04/27 it was decided to discontinue the IV Cefepime, Flagyl, and Diflucan - IJ thrombosis, was on Lovenox- now discontinued FEN/GI: TPN discontinued earlier in the week Clear liquids as tolerated Pt appears to be in terminal state today. Continue comfort measures. Admission and Anticipated Discharge Date Admission Date: April 18, 2024 Subjective Pt seen at bedside this morning. No family present. Pt appears to be in terminal state. Unable to answer questions but no acute distress or discomfort noted. Review of Systems Review of Systems: As per above Physical Exam Physical Exam: General:Terminal state, irregular respirations but no acute distress or discomfort noted HEENT: Normocephalic, dry oral mucosa, Cardio: Regular rate and rhythm Resp:Crackles noted L>R diffusely except in upper lung pryor which are clear GI: Soft Skin: Cool, pale, dry Results & Data Results & Data Vital Signs (Past 12 Hours) Vital Signs O2 Del Method 04/27/24 21:00 Room Air
--- NOTE | 2024-04-28 10:28 | Death Pronouncement Note ---
Date of Service April 28, 2024 Pronouncement Note Admission Date April 18, 2024 Preliminary Cause of (1) Colon cancer metastasized to intra-abdominal lymph node: (2) Renal failure: Summary I was called to pronounce the of Susan Diez ( 1960) by nurse Ramiro Agustin on 04/28/2024 at 9:54 am. Upon entering the room, patient was found to be in a terminal state. They were unresponsive to, and did not withdrawal from, verbal or tactile stimuli. On cardiopulmonary exam, they were found to be without detectable carotid pulses, and without spontaneous heart tones or respirations. Time of was pronounced by me on 04/28/2024 at 0959. Attending physician was notified was notified. Next of kin was notified by nurse. Jeanine Philip DO Additional Data Attending physician: Chavez Mcneil DO Resident Activity Tracking Resident Involvement: Resident Care Provided Care Provided: Adult Hospital Medicine
--- NOTE | 2024-04-28 10:29 | Discharge Summary ---
Date of Service April 28, 2024 Admission HPI Per Admitting Provider Susan is a 63-year-old female with a recent medical history of metastatic colon cancer with peritoneal carcinomatosis who initially presents to [facility] with a large bowel obstructed and was transferred to [facility] where she underwent subtotal colectomy for perforation with open abdomen taken back for closure 03/21 and placement of end ileostomy and sigmoid mucous fistula on 03/23. PER CHART REVIEW AND TRANSFER DISCUSSION W/ [facility]: At [facility] postoperative course was complicated with intra-abdominal abscesses, suspected bile leak, UTI, and development of IJ DVT. She also had malignant hydronephrosis found on cystoscopy with left ureteral stent placement, and surgical site was complicated by fascial dehiscence which subsequently required ex lap abdominal washout and wall reconstruction with Strattice mesh on 04/10/2024. She subsequently underwent wound VAC placement and was monitored over the next several days. Overall clinically progressed poorly with multiple complications. Did review with surgical team at [facility]. Unfortunately patient does not have additional medical options available, she is not a candidate for ongoing chemotherapy and abdominal antibiotics while helping to stabilize the patient likely limited by suspected enteric compromise. Goals of care discussions were had between primary team, palliative care. On goals of care discussion at family meeting 04/17 patient expressed her main desire to return home to [facility]. Home hospice was discussed however patient does not wish to pursue this due to her severe level of illness, would consider transition to palliative care to facility but does not want her family to have to care for her and would like her to be able to be her at end-of-life rather than having to be her caregiver. On discussion with her teams at [facility] patient would like to continue TPN, IV antibiotics, and anticoagulation although recognized that these were unlikely to change her long-term outcome and can be discontinued with transition to comfort measures at any point. As it was felt that with possible enteric leak that the IV antibiotics were playing a meaningful role in quality of life is felt to be reasonable to continue. Goals of care and medical condition discussed extensively with surgical team by phone with transfer center. He is medically complex with metastatic cancer and multiple complications and likely has a prognosis days to short weeks by PPS. Given that her goals of care are to be in [facility] and with the intention to transition to a palliative oriented goals appropriate to transfer back to this facility on [facility] level of care at this time. Palliative care and oncology have been involved in discussions and will help to facilitate any orders as needed. Care Items at time of transfer from [facility]: - Left IJ DVT: Continue Lovenox twice daily. Patient does have hematuria without significant hemoglobin drop, will continue Lovenox for now. - Severe malnutrition: With cachexia, muscle wasting on supplemental TPN. May continue TPN for now however can wean/discontinue this for comfort at any time - Abdominal wall dehiscence s/p reconstruction: Wound VAC to be transition to wet-to-dry dressings. Routine wound care. - Subtotal colectomy s/p fistula formation complicated by bile leak: With 3 CHALINO drains and [address] CHALINO drain #3 initially with increased output concerning for enteric leak has had minimal output in the last 48 hours. Discussed with surgical team, based on prognosis and clinical condition expect that these will remain in place until end-of-life. - LESLY/azotemia: Creatinine stable, remains with azotemia. Patient did have hydronephrosis due to malignant obstruction s/p stent placement. Ultimately stent is expected to fail at some point however further modification of this is not felt to be likely to significantly change her course Cefepime 2 g every 12 hours last given 02/15 at 1444, Flagyl 500 mg every 8 hour s, vancomycin 500 mg every 24 hours last given 02/15 at Diflucan 40 mg IV every 24 hours last given 02/14 1635 Lovenox 60 mg every 12 hours last given at 1249 04/08/2024 Seen at the bedside on arrival to [facility]. On open discussion of her understanding of her history and plan of care moving forward she reports "I know I am going to probably in a week or 2, but I wanted to be back in [place] to see family and friends ". Did review extensive discussions that she has had in her understanding of these with her prior care teams, and she notes that her goal now that she is back home is to transition to comfort care measures. Her most important values to see friends and family. Does not wish for hospice at home as she would like her do not have to fill the role of caregiver. She does wish to be comfort measure at time of admission to the hospital. Reviewed each of her medications and the plan in detail. With respect to her IV antibiotics would like to continue these more for comfort and does not expect these to extend the length of her life but because of the complications with bowel infection which may not have adequate source control would like these continued for comfort which is certainly reasonable. She does not have strong feelings about her Lovenox however given that she is tolerating it well and IJ thrombosis can be uncomfortable we will continue this unless she gets lightheaded or dizzy and then would discontinue this at that time. She does not wish for further blood checks even if she were in the anemic would not want intervention for this so we will discontinue these. She does want to continue TPN for couple of more days to try to maximize her nutrition and alertness so she can see friends and family, and ultimately does not plan on continuing this long-term. Will continue BMP/mag/Phos for TPN compounding while this is continued. Confirms DNR/DNI status. She is pleasant and in no acute distress and reports she is in no pain at time of bedside exam. Would like to know if she can have her visit [place] discuss with nursing staff to make an exception for visiting hours so that he can see her. Update was given to her Ashutosh at [phone], and cousin in law Dr. Diez by phone. No additional questions at time of bedside visit. 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 NAD. Cooperative. Cachectic, not acutely toxic HEENT: Atraumatic, normocephalic. MM dry. Pulm: CTAB A&P. -wheezes, -rales, -rhonchi. Symmetrical chest rise. No increased work of breathing. No respiratory distress. Cardiac: RRR, -mrg. Radial pulses intact and symmetrical. ABD: RUQ CHALINO Drain, RLQ ag drain, Stomach Wound Vac in place, LLQ bag drain, LUQ 2x CHALINO drain, Dumont in place. All drains with minimal output at time of arriving assessment. Dumont is draining dark reddish urine. +BL LE edema Principal Diagnosis , metastatic colon cancer Discharge Exam General: Pt seen in terminal state, unresponsive and not breathing Cardiac: No pulse felt, no heart tones auscultated Lungs: No spontaneous respirations Discharge Data Allergies Allergy/AdvReac Type Severity Reaction Status Date / Time levofloxacin Allergy Mild rash Verified 03/19/24 10:18 Penicillins Allergy Mild UNK- was Verified 03/19/24 10:18 as child Consultations 04/18/24 18:13 Consult Palliative Care Routine Hospital Course (1) Colon cancer metastasized to intra-abdominal lymph node: (2) Renal failure: Rhiannon Davis is a 63-year-old female with a recent medical history of metastatic colon cancer with peritoneal carcinomatosis who initially presented to [facility] with a large bowel obstructed and was transferred to [facility] where she underwent subtotal colectomy for perforation with open abdomen taken back for closure 03/21 and placement of end ileostomy and sigmoid mucous fistula on 03/23. She has a complicated history including suspected bile leak, IJ thrombosis, and poor progression with malnutrition. On extensive discussions with her oncologic and surgical teams unfortunately has no further surgical or chemotherapeutic treatment options. After meeting with palliative care did wish for transfer back to [facility] to transition to comfort measures with her highest goal being with friends and family. Gradually, medical interventions were stopped per wish of patient or her family. TPN discontinued last week. Antibiotics discontinued 04/27. Lovenox discontinued. Creatinine last week noted to be rising so labs were discontinued. Ultimately, pt found in terminal state this morning and pronounces (see pronouncement note). Total Time Total Time Spent Total Time Spent (In Minutes): <30 Discharge Plan Discharge Items Patient Disposition: Other Date/Time: 04/28/24 09:59 Supervising Physician Co-Signing Physician Notes I personally examined the patient and verified all carias points of history and exam, discussed case, and agree with decision making with Dr Philip agonal respirations when i saw her. appearing comfortable. passed shortly thereafter. vitals noted unresponsive nad agonal respirations. IMPRESSION AND PLAN metastatic colon cancer end-of-life care/comfort measures only passed comfortably Resident Activity Tracking Resident Involvement: Resident Care Provided Care Provided: Adult Hospital Medicine
--- NOTE | 2024-04-28 18:46 | Billing Data ---
Date of Service April 28, 2024 Coding Level of Care Code 33710 IN/OBS DISCH 30 MIN/LESS
== END 2024-04-28 13:07 | disposition expired | DRG 374 ==
LOC: SUATTDRO 18:37 → 3E 18:37